=== PATIENT | male | born 1940 | race Caucasian/White ===

== ENCOUNTER → 2018-01-07 | Outpatient (CLI) | payer OTHER, MEDICARE ==
[~2018-01-07] MED LIST: CEPH500C2 PO; DOCU1TAB6 PO; KPP250 PO; MULT-190 PO; MULT-412 PO; PHEN-310 PO; PHN/100 PO; POLY1POW2 PO; PRS5 PO; TAMS0.4C59 PO
[2018-01-07 08:38] LABS: BASO % 0.6 %; BASO ABS # 0.04 K/uL (0-0.2); EOS % 7.4 %; EOS ABS # 0.53 K/uL (0-0.5); HEMOGLOBIN 14.3 g/dL (14.0-18.0); IG# 0.02 K/uL (0.00-0.02); LYMPH % 37.6 %; LYMPH ABS # 2.71 K/uL (1.2-3.4); MEAN CELL VOLUME 93.8 fL (80-100); MEAN CORPUSCULAR HEMOGLOBIN 31.9 pg (25-34); MEAN PLATELET VOLUME 10.4 fL (7.4-10.4); MONO % 6.1 %; MONO ABS # 0.44 K/uL (0.11-0.59); NEUT ABS # 3.47 K/uL (1.4-6.5); PLATELET COUNT 254 K/uL (130-400); RED CELL DISTRIBUTION WIDTH SD 44.2 fL (36.4-46.3); WHITE BLOOD COUNT 7.21 K/uL (4.8-10.8)
[2018-01-07 08:47] LABS: BLOOD UREA NITROGEN 22 mg/dl (7-18); CALCIUM 8.7 mg/dl (8.5-10.1); CARBON DIOXIDE 23 mmol/L (21-32); CREATININE 1.89 mg/dl (0.60-1.40); GLUCOSE 159 mg/dl (70-99); POTASSIUM 3.7 mmol/L (3.5-5.1); SODIUM 137 mmol/L (136-145)
== END | disposition home or self-care (01) ==
LOC: C.LABSPEC 08:08
PROVIDERS: ATTEND Internal Medicine
DX: N18.9 Chronic kidney disease, unspecified (principal); I35.0 Nonrheumatic aortic (valve) stenosis; N40.0 Benign prostatic hyperplasia without lower urinary tract symptoms; D64.9 Anemia, unspecified; R26.9 Unspecified abnormalities of gait and mobility; Z86.69 Personal history of other diseases of the nervous system and sense organs

== ENCOUNTER 2019-06-29 09:34 | Inpatient (IN) ==
[2019-06-29] MEDS ORDERED: SODIUM CHLORIDE 0.9% 500 ML IV ONE (11:49)
[2019-06-29] MEDS ORDERED: OPTIRAY 320 125ml IV PRN (11:52)
[2019-06-29 12:03] LABS: Basophils # (auto) 0.05 K/uL (0-0.2); Basophils % (auto) 0.6 %; Eosinophils # (auto) 0.26 K/uL (0-0.5); Eosinophils % (auto) 2.9 %; Hematocrit (blood only) 43.3 % (42-52); Hemoglobin 15.4 g/dL (14.0-18.0); Immature Granulocytes # (auto) 0.01 K/uL (0.00-0.02); Immature Granulocytes % (auto) 0.1 %; Lymphocytes # (auto) 2.13 K/uL (1.2-3.4); Lymphocytes % (auto) 23.5 %; Mean Corpuscular Hgb Conc 35.6 g/dL (32-36); Mean Corpuscular Volume 92.9 fL (80-100); Monocytes # (auto) 0.69 K/uL (0.11-0.59); Monocytes % (auto) 7.6 %; Neutrophils # (auto) 5.93 K/uL (1.4-6.5); Neutrophils % (auto) 65.3 %; Platelet Count 243 K/uL (130-400); RDW Coefficient of Variation 12.8 % (11.5-14.5); RDW Standard Deviation 43.6 fL (36.4-46.3); Red Blood Count 4.66 M/uL (4.7-6.1); White Blood Count 9.07 K/uL (4.8-10.8)
[2019-06-29 12:05] LABS: Albumin Level 3.7 gm/dl (3.4-5.0); BUN Creatinine Ratio 11.4 (10-20); Calcium 8.8 mg/dl (8.5-10.1); Creatinine Clr Calc Pharmacy 44.5 ml/min; Est GFR (African American) 44.1; Est GFR (Non-African American) 38.1; Magnesium 1.8 mg/dl (1.8-2.4); Potassium 3.8 mmol/L (3.5-5.1)
[2019-06-29 12:07] LABS: Partial Thromboplastin Time 27.1 Seconds (21.0-31.0); Prothrombin Time 10.7 Seconds (9.0-12.0)
[2019-06-29 12:10] LABS: Albumin Globulin Ratio 0.9 (0.9-2); Bilirubin,Total 0.8 mg/dl (0.2-1); Globulin 4.3 gm/dl (2.5-4.0); Phosphorus 2.3 mg/dl (2.5-4.9); Troponin I 0.021 ng/ml (0-0.045)
--- NOTE | 2019-06-29 12:18 | XRay Report ---
XR chest 1V portable HISTORY: 79 years-old Male stroke sx acute strokelike symptoms COMPARISON: Chest radiograph 09/22/2014 TECHNIQUE: Portable AP view of the chest FINDINGS: Cardiac silhouette is enlarged, unchanged. Calcified plaque of the thoracic aortic arch. Unchanged mi ld mediastinal widening. No pneumothorax, pleural effusion, focal airspace consolidation or overt pul monary edema. Degenerative changes of the shoulders and spine. IMPRESSION: Cardiomegaly without acute process. ACT 112: Negative or not required by law. The above report was generated using voice recognition software. It may contain grammatical, syntax o r spelling errors. Electronically signed by: Andreas Robles M.D. 06/29/2019 12:16 PM
--- NOTE | 2019-06-29 12:18 | CT Scan Report ---
CT OF THE HEAD WITHOUT CONTRAST CLINICAL HISTORY: Stroke evaluation. COMPARISON STUDY: Head CT June 29, 2019 at 3:04 AM. TECHNIQUE: Helical axial images of the head were obtained without IV contrast. Automated exposure con trol was utilized for the study. A dose lowering technique was utilized adhering to the principles o f ALARA. FINDINGS: The 3 mm extra-axial hyperdense focus overlying the right parietal region is unchanged sinc e head CT of June 28, 2019. Similar findings were shown on earlier CT of September 22, 2014. The ventr icular system is stable. Basilar cisterns are patent. No new extra-axial collections are present. Whi te matter hypodensities are unchanged. There are no findings to suggest acute dural sinus thrombosis or acute territorial infarct. Postoperative findings within the calvarium are noted, including multip le tricia holes. Sinus mucosal thickening is noted. There is no calvarial fracture. IMPRESSION: 1. No change in the small extra-axial hyperdense focus overlying the right parietal region since head CT June 28, 2019. Postoperative dural thickening is favored. A tiny subdural hematoma could appea r similar but is considered less likely. 2. No change in appearance of the brain, as described above. ACT 112: Negative or not required by law. Electronically signed by: Cr Mackay M.D. 06/29/2019 12:16 PM
--- NOTE | 2019-06-29 12:24 | CT Scan Report ---
CTA ANGIOGRAPHY OF THE HEAD CLINICAL HISTORY: aphasia, Right weakness COMPARISON STUDY: MRA of the head September 15, 2014. Head CT June 29, 2019 at 3:04 AM. TECHNIQUE: Helical axial images of the head were obtained following uneventful intravenous administr ation of 120 cc of Optiray 320. Automated exposure control was utilized for the study. A dose lower ing technique was utilized adhering to the principles of ALARA. CT DOSE: 1218.73 mGy.cm FINDINGS: The head CT will be reported separately. There is moderate sinus mucosal thickening. Postop erative findings within the calvarium are noted. Extra-axial hyperdensity overlying the right parieta l region is unchanged. There is moderate plaque within the bilateral cavernous carotids with mild pola nosis of the right cavernous carotid. No intraluminal thrombus or abrupt vessel cut off is identified . There is moderate stenosis of the proximal left posterior cerebral artery. A left posterior to sisi cating artery is noted. There is no intracranial aneurysm. IMPRESSION: 1. No intraluminal thrombus or abrupt vessel cut off within the intracranial vessels. 2. Moderate atherosclerotic plaque. Moderate stenosis of the proximal left [employer] and mild stenosis of t he right cavernous carotid. ACT 112: Negative or not required by law. Electronically signed by: Cr Mackay M.D. 06/29/2019 12:22 PM
--- NOTE | 2019-06-29 12:32 | CT Scan Report ---
CT angio neck with con CLINICAL HISTORY: 79 years-old Male with aphasia, Right weakness. Acute strokelike symptoms with r ight-sided weakness COMPARISON STUDY: CTA of the head of same day TECHNIQUE: Following the IV administration of 1 20 mL of Optiray 320, CT angiogram of the neck was pe rformed from the aortic arch to the skull base. Images are reviewed in the axial, sagittal, and coron al planes. 3-D MIPS images are created and assessed. IV contrast was administered without complicatio n. All measurements were calculated based on NASCET criteria. A dose lowering technique was utilized adhering to the principles of ALARA. FINDINGS: The opacified pulmonary arterial tree is unremarkable. Mixed plaque of the thoracic aortic arch. Hsu ncy of the imaged bilateral subclavian arteries. Moderate mixed plaque of the patent common carotid a rteries. Severe mixed plaque of the bilateral carotid bulbs results in less than 50% luminal narrowin g bilaterally, right greater than left. Imaged internal carotid arteries appear patent. Calcified sara que at the origin of the vertebral arteries results in less than 50% luminal narrowing. Less than 50% luminal narrowing involves portions of the V2 segments secondary to uncovertebral spurring and facet arthrosis. Imaged basilar artery is patent. Azygos lobe and fissure. No pneumothorax. Moderate maxillary sinus disease. Multilevel degenerative c hanges of the spine. IMPRESSION: 1. No aneurysm, dissection, high-grade stenosis or proximal branch occlusion. 2. Additional findings as above. ACT 112: Negative or not required by law. The above report was generated using voice recognition software. It may contain grammatical, syntax o r spelling errors. Electronically signed by: Andreas oRbles M.D. 06/29/2019 12:31 PM
--- NOTE | 2019-06-29 12:36 | Electrocardiogram Report ---
Test Reason : Blood Pressure : / mmHG Vent. Rate : 082 BPM Atrial Rate : 082 BPM P-R Int : 176 ms QRS Dur : 130 ms QT Int : 426 ms P-R-T Axes : 054 065 012 degrees QTc Int : 497 ms Poor data quality, interpretation may be adversely affected Normal sinus rhythm Right bundle branch block Abnormal ECG When compared with ECG of 28-JUN-2019 20:00, No significant change was found Confirmed by Zander Hinojosa ([id number]) on 06/29/2019 12:35:57 PM Referred By: ER Confirmed By:Zander Hinojosa
--- NOTE | 2019-06-29 13:12 | Emergency Department Note ---
Entered by Michaela Murillo acting as a scribe for Raul Posey MD History of Present Illness General Chief complaint: Altered Mental Status Time Seen by Provider: 06/29/19 10:59 Source: family Mode of arrival: EMS History of Present Illness Onset (ago): day(s) 1 Location: head (neuro symptoms) Severity: similar to prior episodes Pain Consistency: + other (worsening) Maximum Pain Intensity: 0 Quality: + other (neuro symptoms) Exacerbated By: + other (fall) Associated symptoms: + weakness and + other (Slurred speech, right sided weakness.); no fever/chills Treatments prior to arrival: other (Norvasc) The patient is an 79 year old male presenting to the Emergency Department via EMS complaining of worsening neuro symptoms starting 1 day ago. The patients son reports that the patient who resides at [facility] has had worsening slurred speech. He explains that he spoke to the patient yesterday and today and that the patients speech is slurred and that this slurred speech has worsened over the past day. He states that the patient has also been experiencing right sided weakness that seems to be worsening since yesterday. He notes that the patient wasnt able to cut his own food and needed assistance walking which are two things that the patient can normally do by himself. He adds that the patient has experienced these symptoms before as he has had previous strokes and subdural hematomas that have affected his strength. The patients son reports that the patient fell at 1733 yesterday and was seen in the Emergency Department for his symptoms. He states that the patient had 2 CT scans that were negative for any acute findings. He explains that the patients blood pressure was elevated and he was given Norvasc. 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 He adds that the patient has short term memory problems from his subdural hematoma in 2015 and strokes. The patients son reports that the patient doesnt drink water regularly and may be dehydrated. He denies that the patient has had any recent fevers or chills. Home Medications Home Medications Medication Instructions Recorded Confirmed Type ammonium lactate 1 applic TOPICAL DAILY PRN 06/28/19 06/29/19 History atorvastatin [Lipitor] 20 mg PO QAM 06/28/19 06/29/19 History cephalexin [Keflex] 500 mg PO BID 06/28/19 06/29/19 History docusate sodium 100 mg PO BID 06/28/19 06/29/19 History finasteride [Proscar] 5 mg PO QAM 06/28/19 06/29/19 History levetiracetam [Keppra] 1,000 mg PO BID 06/28/19 06/29/19 History methyl salicylate-menthol 1 applic TOPICAL QID PRN 06/28/19 06/29/19 History [Thera-Gesic] multivitamin 1 tab PO QAM 06/28/19 06/29/19 History tamsulosin 0.4 mg PO QAM 06/28/19 06/29/19 History tizanidine 2 mg PO Q6 PRN 06/28/19 06/29/19 History vit A,C and E-ikdbaq-bcnsjyyu 1 tab PO QAM 06/28/19 06/29/19 History [I-Don] amlodipine [Norvasc] 5 mg PO DAILY #30 tab 06/29/19 06/29/19 Rx Allergies Allergy/AdvReac Type Severity Reaction Status Date / Time MAGGI Inhibitors AdvReac Unknown 08/31/11 NO Verified 06/29/19 11:[address] RODRIGUEZ ARB-Angiotensin Receptor AdvReac Unknown 08/31/11 NO Verified 06/29/19 11:[address] MCKEON NSAIDS (Non-Steroidal AdvReac Unknown 08/31/11 NO Verified 06/29/19 11:02 Anti-Inflamma NSAIDS PER DR MCKEON Past Med/Surg History Medical History BPH (benign prostatic hyperplasia) (Chronic) Chronic subdural hematoma (Acute) CKD (chronic kidney disease), stage III (Chronic) 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 Brooks and Dr. Dooley in 05/2014 for nonhealing wound" On 09/15/14 18:32 Pili Baeza wrote "multiple craniotomies in November 2013, re-exploration and debridement by Dr. Brooks and Dr. Dooley in 05/2014" Family History Other Unknown family medical history Social History Preferred Language: Kenyan Communication Ability: slurred Toll Relief Operator Required: No Beliefs That Will Affect Care: None marital status: Single Current Living Situation: Personal Care Facility Other Information That Helps Us Care for You: No Feels Safe at Home: Yes Safety Concerns: Feels Safe At This Time Smoking Status: Former smoker Tobacco Type: cigarettes ; Do You Dip or Chew Tobacco: No ; Smoking End Date: September 09, 1984 ; Second Hand Exposure: No ; Tobacco Cessation Education Requested by Patient: No Hx Alcohol Use: Yes Alcohol type: beer Alcohol Intake Frequency: Daily Alcohol Intake Frequency Comment: 1 beer a day Hx Substance Use: No Review of Systems See HPI for pertinent positives & negatives. and A total of 10 systems reviewed and were otherwise negative Physical Exam Vital Signs Vital Signs - 24 hr 06/29/19 09:41 06/29/19 09:46 06/29/19 09:49 Temperature 37.1 C Temperature Source Oral Pulse Rate 78 82 81 Pulse Rate [Apical] Pulse Rate from SpO2 Sensor 78 80 Respiratory Rate 18 19 16 Blood Pressure 182/102 H 182/102 H Blood Pressure [Right Arm] Blood Pressure Mean 131 128 Blood Pressure Mean [Right Arm] Pulse Oximetry 95 95 95 Oxygen Delivery Method Room Air Sepsis Recent Fever Within 48 Hours No Sepsis New/Unexplained Change in Mental Status No Sepsis Action Taken by Nursing No Action Required 06/29/19 10:00 06/29/19 10:30 06/29/19 10:40 Temperature Temperature Source Pulse Rate 76 79 82 Pulse Rate [Apical] Pulse Rate from SpO2 Sensor 77 78 85 Respiratory Rate 16 14 16 Blood Pressure 224/106 H Blood Pressure [Right Arm] Blood Pressure Mean 133 Blood Pressure Mean [Right Arm] Pulse Oximetry 95 95 95 Oxygen Delivery Method Sepsis Recent Fever Within 48 Hours Sepsis New/Unexplained Change in Mental Status Sepsis Action Taken by Nursing 06/29/19 10:43 06/29/19 11:00 06/29/19 11:30 Temperature Temperature Source Pulse Rate 101 H 85 Pulse Rate [Apical] 86 Pulse Rate from SpO2 Sensor Respiratory Rate 16 18 15 Blood Pressure Blood Pressure [Right Arm] 224/106 H Blood Pressure Mean Blood Pressure Mean [Right Arm] 145 Pulse Oximetry 95 Oxygen Delivery Method Room Air Sepsis Recent Fever Within 48 Hours Sepsis New/Unexplained Change in Mental Status Sepsis Action Taken by Nursing 06/29/19 12:07 06/29/19 12:27 06/29/19 12:30 Temperature Temperature Source Pulse Rate 87 84 Pulse Rate [Apical] Pulse Rate from SpO2 Sensor 83 Respiratory Rate 18 17 Blood Pressure 213/112 H Blood Pressure [Right Arm] Blood Pressure Mean 132 Blood Pressure Mean [Right Arm] Pulse Oximetry 96 97 Oxygen Delivery Method Room Air Sepsis Recent Fever Within 48 Hours Sepsis New/Unexplained Change in Mental Status Sepsis Action Taken by Nursing 06/29/19 12:31 06/29/19 13:00 06/29/19 13:30 Temperature Temperature Source Pulse Rate 86 91 H 84 Pulse Rate [Apical] Pulse Rate from SpO2 Sensor 85 91 H Respiratory Rate 17 20 15 Blood Pressure 203/108 H 169/149 H Blood Pressure [Right Arm] Blood Pressure Mean 118 152 Blood Pressure Mean [Right Arm] Pulse Oximetry 98 98 Oxygen Delivery Method Sepsis Recent Fever Within 48 Hours Sepsis New/Unexplained Change in Mental Status Sepsis Action Taken by Nursing 06/29/19 13:38 Temperature Temperature Source Pulse Rate 90 Pulse Rate [Apical] Pulse Rate from SpO2 Sensor Respiratory Rate 14 Blood Pressure 214/107 H Blood Pressure [Right Arm] Blood Pressure Mean 136 Blood Pressure Mean [Right Arm] Pulse Oximetry Oxygen Delivery Method Sepsis Recent Fever Within 48 Hours Sepsis New/Unexplained Change in Mental Status Sepsis Action Taken by Nursing GENERAL: Awake, alert, fatigued-appearing, in no distress HENT: Normocephalic, atraumatic. Oropharynx with dry mucous membranes and otherwise unremarkable. . EYES: Normal conjunctiva. Sclera non-icteric. EOMI. No nystamgus. PEARRL. NECK: Supple. No nuchal rigidity. FROM. No JVD. RESPIRATORY: CTAB. CARDIAC: Regular rate, normal rhythm. Extremities warm and well perfused. Pulses equal. ABDOMEN: Soft, non-distended. No tenderness to palpation. No rebound or guarding. No masses. RECTAL: Deferred. MUSCULOSKELETAL: Chest examination reveals no tenderness. The back is symmetrical on inspection without obvious abnormality. There is no CVA tenderness to palpation. No joint edema. LOWER EXTREMITIES: Calves are equal size bilaterally and non-tender. No edema. No discoloration. NEURO: Moderate right lower facial droop with moderate-severe dysarthria. No word finding difficulty. Follows commands. 4/5 strength of RUE with mild pronator drift. 4+/5 RLE. SKIN: No rash or jaundice noted. Course Course 1117: The patient was evaluated in room C9, and a complete history and physical examination were performed. 1241: I reevaluated the patient at this time. 1300: I discussed the patients case with Hortensia Tatum PA-C. Dr. [facility] hospitalist will evaluate the patient for further management. Administered Medications Dextrose/Sodium Chloride (D5w And Nss) 1,000 mls @ 60 mls/hr IV .[id number] SHILOH Stop: 06/30/19 09:36 Last Admin: 06/29/19 17:18 Dose: 60 mls/hr Documented by: [id number] Nitroglycerin (Nitro-Bid 2%) 1 inch EXT Q6H SHILHO Stop: 07/29/19 17:29 Last Admin: 06/29/19 17:55 Dose: 1 inch Documented by: [id number] Discontinued Medications Sodium Chloride (Nss) 500 mls @ 999 mls/hr IV .Q31M ONE Stop: 06/29/19 12:19 Last Infusion: 06/29/19 13:22 Dose: 0 mls/hr Documented by: [id number] Admin: 06/29/19 12:26 Dose: 999 mls/hr Documented by: [id number] Ioversol (Optiray 320 125ml) 120 ml IV ONCE PRN PRN Reason: Interaction Checking Stop: 07/03/19 11:51 Last Admin: 06/29/19 11:52 Dose: 120 ml Documented by: [id number] Labetalol HCl (Normodyne) 10 mg IV NOW STA Stop: 06/29/19 13:40 Last Admin: 06/29/19 13:45 Dose: 10 mg Documented by: [id number] Cosigned by: [id number] Labetalol HCl (Normodyne) 10 mg IV NOW STA Stop: 06/29/19 14:11 Last Admin: 06/29/19 14:19 Dose: 10 mg Documented by: [id number] Cosigned by: [id number] Labetalol HCl (Normodyne) 20 mg IV NOW STA Stop: 06/29/19 15:37 Last Admin: 06/29/19 15:52 Dose: 20 mg Documented by: [id number] Cosigned by: [id number] Medical Decision Making Differential Diagnosis Differential Diagnosis includes but is not limited to dehydration, stroke, anemia, hypoglycemia, hyponatremia, hypernatremia, urinary tract infection, pneumonia, bronchitis, sepsis, gastroenteritis, additional abdominal pathology, metabolic abnormalities and infections. Medical Records Attestation: I reviewed the patient's medical records. Home Medications Current Medication List: was personally reviewed by me Laboratory Data Attestation: I reviewed the patient's lab results. Result diagrams: 06/29/19 09:55 06/29/19 09:55 Lab Results 06/29/19 06/29/19 06/29/19 Range/Units 09:55 09:55 09:55 WBC 9.07 (4.8-10.8) K/uL RBC 4.66 L (4.7-6.1) M/uL Hgb 15.4 (14.0-18.0) g/dL Hct 43.3 (42-52) % MCV 92.9 (80-100) fL MCH 33.0 (25-34) pg MCHC 35.6 (32-36) g/dL RDW Std Deviation 43.6 (36.4-46.3) fL RDW Coeff of Zahra 12.8 (11.5-14.5) % Plt Count 243 (130-400) K/uL MPV 10.0 (7.4-10.4) fL Immature Gran % (Auto) 0.1 % Neut % (Auto) 65.3 % Lymph % (Auto) 23.5 % [place] % (Auto) 7.6 % Eos % (Auto) 2.9 % Baso % (Auto) 0.6 % Immature Gran # (Auto) 0.01 (0.00-0.02) K/uL Neut # (Auto) 5.93 (1.4-6.5) K/uL Lymph # (Auto) 2.13 (1.2-3.4) K/uL [place] # (Auto) 0.69 H (0.11-0.59) K/uL Eos # (Auto) 0.26 (0-0.5) K/uL Baso # (Auto) 0.05 (0-0.2) K/uL PT 10.7 (9.0-12.0) Seconds INR 1.0 (0.9-1.1) APTT 27.1 (21.0-31.0) Seconds PTT Ratio 1.0 Sodium 137 (136-145) mmol/L Potassium 3.8 (3.5-5.1) mmol/L Chloride 105 (98-107) mmol/L Carbon Dioxide 26 (21-32) mmol/L Anion Gap 6.0 (3-11) BUN 19 H (7-18) mg/dl Creatinine 1.67 H (0.6-1.4) mg/dl Est Cr Clr Drug Dosing 44.5 ml/min Est GFR ( Amer) 44.1 Est GFR (Non-Af Amer) 38.1 BUN/Creatinine Ratio 11.4 (10-20) Glucose 122 H (70-99) mg/dl Calcium 8.8 (8.5-10.1) mg/dl Phosphorus 2.3 L (2.5-4.9) mg/dl Magnesium 1.8 (1.8-2.4) mg/dl Total Bilirubin 0.8 (0.2-1) mg/dl AST 27 (15-37) U/L ALT 37 (12-78) U/L Alkaline Phosphatase 107 (45-117) U/L Troponin I 0.021 (0-0.045) ng/ml Total Protein 8.0 (6.4-8.2) gm/dl Albumin 3.7 (3.4-5.0) gm/dl Globulin 4.3 H (2.5-4.0) gm/dl Albumin/Globulin Ratio 0.9 (0.9-2) Blood Type Antibody Screen 06/29/19 06/29/19 Range/Units 09:55 12:17 WBC (4.8-10.8) K/uL RBC (4.7-6.1) M/uL Hgb (14.0-18.0) g/dL Hct (42-52) % MCV (80-100) fL MCH (25-34) pg MCHC (32-36) g/dL RDW Std Deviation (36.4-46.3) fL RDW Coeff of Zahra (11.5-14.5) % Plt Count (130-400) K/uL MPV (7.4-10.4) fL Immature Gran % (Auto) % Neut % (Auto) % Lymph % (Auto) % [place] % (Auto) % Eos % (Auto) % Baso % (Auto) % Immature Gran # (Auto) (0.00-0.02) K/uL Neut # (Auto) (1.4-6.5) K/uL Lymph # (Auto) (1.2-3.4) K/uL [place] # (Auto) (0.11-0.59) K/uL Eos # (Auto) (0-0.5) K/uL Baso # (Auto) (0-0.2) K/uL PT (9.0-12.0) Seconds INR (0.9-1.1) APTT (21.0-31.0) Seconds PTT Ratio Sodium (136-145) mmol/L Potassium (3.5-5.1) mmol/L Chloride (98-107) mmol/L Carbon Dioxide (21-32) mmol/L Anion Gap (3-11) BUN (7-18) mg/dl Creatinine (0.6-1.4) mg/dl Est Cr Clr Drug Dosing ml/min Est GFR ( Amer) Est GFR (Non-Af Amer) BUN/Creatinine Ratio (10-20) Glucose (70-99) mg/dl Calcium (8.5-10.1) mg/dl Phosphorus Cancelled (2.5-4.9) mg/dl Magnesium (1.8-2.4) mg/dl Total Bilirubin (0.2-1) mg/dl AST (15-37) U/L ALT (12-78) U/L Alkaline Phosphatase (45-117) U/L Troponin I (0-0.045) ng/ml Total Protein (6.4-8.2) gm/dl Albumin (3.4-5.0) gm/dl Globulin (2.5-4.0) gm/dl Albumin/Globulin Ratio (0.9-2) Blood Type A Positive Antibody Screen NEGATIVE Imaging Data Radiologist's Impression: Radiology results as stated below per my review and the radiologist's interpretation: CTA ANGIOGRAPHY OF THE HEAD CLINICAL HISTORY: aphasia, Right weakness COMPARISON STUDY: MRA of the head September 15, 2014. Head CT June 29, 2019 at 3:04 AM. TECHNIQUE: Helical axial images of the head were obtained following uneventful intravenous administration of 120 cc of Optiray 320. Automated exposure control was utilized for the study. A dose lowering technique was utilized adhering to the principles of ALARA. CT DOSE: 1218.73 mGy.cm FINDINGS: The head CT will be reported separately. There is moderate sinus mucosal thickening. Postoperative findings within the calvarium are noted. Extra-axial hyperdensity overlying the right parietal region is unchanged. There is moderate plaque within the bilateral cavernous carotids with mild stenosis of the right cavernous carotid. No intraluminal thrombus or abrupt vessel cut off is identified. There is moderate stenosis of the proximal left posterior cerebral artery. A left posterior to indicating artery is noted. There is no in tracranial aneurysm. IMPRESSION: 1. No intraluminal thrombus or abrupt vessel cut off within the intracranial vessels. 2. Moderate atherosclerotic plaque. 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 ACT 112: Negative or not required by law. Electronically signed by: Cr Mackay M.D. 06/29/2019 12:[address] angio neck with con CLINICAL HISTORY: 79 years-old Male with aphasia, Right weakness. Acute strokelike symptoms with right-sided weakness COMPARISON STUDY: CTA of the head of same day TECHNIQUE: Following the IV administration of 1 20 mL of Optiray 320, CT angiogram of the neck was performed from the aortic arch to the skull base. Images are reviewed in the axial, sagittal, and coronal planes. 3-D MIPS images are created and assessed. IV contrast was administered without complication. All measurements were calculated based on NASCET criteria. A dose lowering technique was utilized adhering to the principles of ALARA. FINDINGS: The opacified pulmonary arterial tree is unremarkable. Mixed plaque of the thoracic aortic arch. Patency of the imaged bilateral subclavian arteries. Moderate mixed plaque of the patent common carotid arteries. Severe mixed plaque of the bilateral carotid bulbs results in less than 50% luminal narrowing bilaterally, right greater than left. Imaged internal carotid arteries appear patent. Calcified plaque at the origin of the vertebral arteries results in less than 50% luminal narrowing. Less than 50% luminal narrowing involves portions of the V2 segments secondary to uncovertebral spurring and facet arthrosis. Imaged basilar artery is patent. Azygos lobe and fissure. No pneumothorax. Moderate maxillary sinus disease. Multilevel degenerative changes of the spine. IMPRESSION: 1. No aneurysm, dissection, high-grade stenosis or proximal branch occlusion. 2. Additional findings as above. ACT 112: Negative or not required by law. The above report was generated using voice recognition software. It may contain grammatical, syntax or spelling errors. Electronically signed by: Andreas Robles M.D. 06/29/2019 12:[address] OF THE HEAD WITHOUT CONTRAST CLINICAL HISTORY: Stroke evaluation. COMPARISON STUDY: Head CT June 29, 2019 at 3:04 AM. TECHNIQUE: Helical axial images of the head were obtained without IV contrast. Automated exposure control was utilized for the study. A dose lowering technique was utilized adhering to the principles of ALARA. FINDINGS: The 3 mm extra-axial hyperdense focus overlying the right parietal region is unchanged since head CT of June 28, 2019. Similar findings were shown on earlier CT of September 22, 2014. The ventricular system is stable. Basilar cisterns are patent. No new extra-axial collections are present. White matter hypodensities are unchanged. There are no findings to suggest acute dural sinus thrombosis or acute territorial infarct. Postoperative findings within the calvarium are noted, including multiple tricia holes. Sinus mucosal thickening is noted. There is no calvarial fracture. IMPRESSION: 1. No change in the small extra-axial hyperdense focus overlying the right parietal region since head CT June 28, 2019. Postoperative dural thickening is favored. A tiny subdural hematoma could appear similar but is considered less likely. 2. No change in appearance of the brain, as described above. ACT 112: Negative or not required by law. Electronically signed by: Cr Mackay M.D. 06/29/2019 12:16 PM XR chest 1V portable HISTORY: 79 years-old Male stroke sx acute strokelike symptoms COMPARISON: Chest radiograph 09/22/2014 TECHNIQUE: Portable AP view of the chest FINDINGS: Cardiac silhouette is enlarged, unchanged. Calcified plaque of the thoracic aort ic arch. Unchanged mild mediastinal widening. No pneumothorax, pleural effusion, focal airspace consolidation or overt pulmonary edema. Degenerative changes of the shoulders and spine. IMPRESSION: Cardiomegaly without acute process. ACT 112: Negative or not required by law. The above report was generated using voice recognition software. It may contain grammatical, syntax or spelling errors. Electronically signed by: Andreas Robles M.D. 06/29/2019 12:16 PM ECG Data Attestation: I personally reviewed and interpreted this ECG as follows: Indication: + altered mental status (confusion) Rate (beats per minute): 82 Rhythm: + normal sinus ECG Intervals/blocks: + Right Bundle branch block and + Normal QT-c (QT-c 497.) ECG ST segments: no ST depression and no ST elevation ECG Findings: no PACs and no PVCs Blood Pressure Blood Pressure Findings: Elevated blood pressure Blood Pressure Disposition: further management by hospitalist JILLIAN Fu The patient is a pleasant 79-year-old gentleman with a pmhx of HTN, CKD, h/o SDH s/p craniotomy who presents emergency department with continued dysarthria and right-sided weakness after being seen in the emergency department last evening for onset of the symptoms in the setting of a fall per HPI. On arrival the patient is in no acute distress, afebrile stable vital signs. He does exhibit moderate right facial droop with moderate-severe dysarthria without any word finding difficulty. He has 4/5 strength of the right upper extremity with pronator drift and 4+/strength of the right lower extremity. Upon patient's evaluation last night into this morning the patient had a CT scan of his head that was considered equivocal for postoperative findings versus new SDH in the setting of his fall. However a repeat CT scan was performed and was unchanged suggesting unlikely to be acute bleed. Given the patient's history of cranio evelyn certainly could be scar tissue/dural thickening/Duraseal causing increased enhancement. I did review the patient's symptoms in detail with the patient's son at the bedside and it was clear that his current symptoms are a complete departure from his baseline. Given that the onset was around 5 PM yesterday, within 24 hours a stroke alert was called to evaluate expeditiously the possibility of large vessel occlusion, which could be amenable to endovascular intervention. Clearly he is not a TPA candidate based on his history of intracranial bleedign alone . CTA of the head and neck were performed with IV contrast after discussion with the patient and his son at the bedside regarding risks of his CKD. However we did agree that the potential benefit outweighed these risks. The CTA of the head and neck was subsequently negative for large vessel cutoffs. EKG with RBBB without overt acute ischemia. Chest x-ray negative for acute process. WBC, H/H and platelets within normal limits. Chemistry without acidosis. Creatinine 1.6 approximate to prior range of values in the setting of CKD. Electrolytes and LFTs unremarkable. Troponin detectable but within normal limits at 0.021. Unclear etiology of patient's symptoms at this time. While CTA did not show evidence of stroke symptoms certainly could be consistent with this. Alternatively while the patient's son denies any histo ry of seizures after his subdural hematoma he has been on Keppra. Potentially could represent a profound Nicolas's paralysis. Patient and his son are agreeable with admission for further revaluation including MRI and neurology consultation. Case was discussed with Nitin Wilkinson, who evaluate the patient for admission. Impression & Plan Dysarthria, Right sided weakness, History of craniotomy, Facial droop, History of subdural hematoma Discharge Plan Visit Data *Final* Discharge Date/Time: 06/29/19 15:32 Chief Complaint: Altered Mental Status ED Provider: Raul Posey Discharge Problem: Dysarthria, Right sided weakness, History of craniotomy, Facial droop, History of subdural hematoma Patient Disposition: Admitted As Inpatient Discharge Instructions Interventions: ED Discharge Assessment Last Done: 06/29/19 15:32 The scribe's documentation has been prepared under my direction and personally reviewed by me in its entirety. I confirm that the note above accurately reflects all work, treatment, procedures, and medical decision making performed by me.
[2019-06-29] MEDS ORDERED: LABETALOL HCL IV 5 MG/ML 20ML IV STA ×3 (13:39→15:36)
--- NOTE | 2019-06-29 14:16 | History & Physical Report ---
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 In ED patient significantly hypertensive, 224/106 during my evaluation. He otherwise remained hemodynamically stable. He underwent CT scan of head without contrast which was unchanged from yesterday's images. CTA of head and neck were ordered and revealed moderate stenosis of proximal left [employer] and mild stenosis of right cavernous carotid. admit to PCU obtain MRI neurology consulted increase atorvastatin from 20mg to 40mg for high intensity lipid panel and a1c in a.m. obtain echocardiogram PT/OT/ST consulted Keep NPO given slurred speech until seen by ST IVF 60cc/hr while NPO (2) Hypertensive emergency: Labetalol 10 mg IV x1 given and repeated due to persistent hypertensive urgency Maintain BP < 220/110 given concern for CVA repeat BP 179/101 previously not on BP meds ( was started on amlodipine 5mg daily in ED on 06/28/19 but hasn't started this) (3) Chronic subdural hematoma: History of prior SDH secondary to trauma requiring multiple craniotomy and surgical interventions He did have chronic and recurrent infectious bur hole sites which he is currently on Keflex for chronic suppressive therapy Neurology consulted (4) History of seizures: 2/2 history of SDH No seizure-like activity Continue Kera (5) Alcohol dependence: pt with prior hx of ETOH abuse prior to SDH now drinks 1 beer nightly placed on AWSS scale with prn lorazepam monitor closely for s/sx of withdrawal (6) CKD (chronic kidney disease), stage III: Baseline creatinine 1.6 BUN/ebecyraala57/1.67 today He did receive CTA while in ED and IVF repeat renal function in a.m. (7) BPH (benign prostatic hyperplasia): hold flomax and finasteride due to hypotensive effects until acute stroke ruled out (8) DVT prophylaxis: SCDS/TEDS for now Disposition: admit to PCU, case management consulted, current resident of [facility] Follow up: PCP Dr. He upon discharge Pt was seen and examined in collaboration with Dr. Esthela, please see addendum History of Present Illness Chief Complaint: Slurred speech and fall in past 24 hours. 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 Of significance patient was last seen in ED last evening on 06/28/2019 approximately 2 hours after suffering a fall. He resides at [facility] when he fell on his bottom, denies hitting his head or losing consciousness. When son came to see him he noted significant slurred speech and difficulty with mobility; therefore he was brought to ED for further evaluation. At time of the fall son also noted his blood pressure to be systolically over 200. During ED evaluation yesterday patient did receive CT scan of head without contrast x2 which revealed a 3 mm extra-axial hyperdense focus along the right parietal region which felt to be consistent to his prior craniotomy site and postop change. Repeat image was unchanged. He was significantly hypertensive during evaluation, but slurred speech had improved and patient was discharged back to [facility]. When he returned back to [facility] son had breakfast with him and patient was having significant difficulty using right upper extremity to eat breakfast. At baseline patient is independent and ambulates with cane or walker and is independent of ADLs. Son noticed slurred speech to progressively get worse; therefore brought back to ED for further evaluation. Currently patient offers no complaints and denies total ROS. Son admits to continued slurred speech, right facial droop and difficulty with mobility. "When you test his strength his strength is there but he has difficulty holding up his right arm with eyes closed and difficulty with mobility." Patient denies any recent illness, fever, chills, sweats, lightheadedness, dizziness, headache, change in vision, change in hearing, diplopia, difficulty swallowing, chest pain, shortness with, palpitation, nausea, vomiting, diarrhea, change in bowel or urinary habits. Up until last evening his appetite had been normal and had been in normal state of health. In ED patient significantly hypertensive, 224/106 during my evaluation. He otherwise remained hemodynamically stable. He underwent CT scan of head without contrast which was unchanged from yesterday's images. CTA of head and neck were ordered and revealed moderate stenosis of proximal left [employer] and mild stenosis of right cavernous carotid. Allergies Allergy/AdvReac Type Severity Reaction Status Date / Time MAGGI Inhibitors AdvReac Unknown 08/31/11 NO Verified 06/29/19 11:[address] RODRIGUEZ ARB-Angiotensin Receptor AdvReac Unknown 08/31/11 NO Verified 06/29/19 11:[address] MCKEON NSAIDS (Non-Steroidal AdvReac Unknown 08/31/11 NO Verified 06/29/19 11:02 Anti-Inflamma NSAIDS PER DR MCKEON Home Medications Home Medications Medication Instructions Recorded Confirmed Type ammonium lactate 1 applic TOPICAL DAILY PRN 06/28/19 06/29/19 History atorvastatin [Lipitor] 20 mg PO QAM 06/28/19 06/29/19 History cephalexin [Keflex] 500 mg PO BID 06/28/19 06/29/19 History docusate sodium 100 mg PO BID 06/28/19 06/29/19 History finasteride [Proscar] 5 mg PO QAM 06/28/19 06/29/19 History levetiracetam [Keppra] 1,000 mg PO BID 06/28/19 06/29/19 History methyl salicylate-menthol 1 applic TOPICAL QID PRN 06/28/19 06/29/19 History [Thera-Gesic] multivitamin 1 tab PO QAM 06/28/19 06/29/19 History tamsulosin 0.4 mg PO QAM 06/28/19 06/29/19 History tizanidine 2 mg PO Q6 PRN 06/28/19 06/29/19 History vit A,C and [id number]-klktxt-ksoytcqm 1 tab PO QAM 06/28/19 06/29/19 History [I-Don] amlodipine [Norvasc] 5 mg PO DAILY #30 tab 06/29/19 06/29/19 Rx Past Med/Surg History Medical History (Updated 06/29/19 @ 14:46 by Lisa Hatfield PA-C) BPH (benign prostatic hyperplasia) (Chronic) Chronic subdural hematoma (Acute) CKD (chronic kidney disease), stage III (Chronic) 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 Brooks and Dr. Dooley in 05/2014 for nonhealing wound" On 09/15/14 18:32 Pili Baeza wrote "multiple craniotomies in November 2013, re-exploration and debridement by Dr. Brooks and Dr. 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 Required: No Beliefs That Will Affect Care: None marital status: Single Current Living Situation: [facility] Other Information That Helps Us Care for You: No Feels Safe at Home: Yes Safety Concerns: Feels Safe At This Time Smoking Status: Former smoker Tobacco Type: cigarettes ; Do You Dip or Chew Tobacco: No ; Smoking End Date: September 09, 1984 ; Second Hand Exposure: No ; Tobacco Cessation Education Requested by Patient: No Hx Alcohol Use: Yes Alcohol type: beer Alcohol Intake Frequency: Daily Alcohol Intake Frequency Comment: 1 beer a day Hx Substance Use: No Review of Systems Review of Systems: All systems reviewed & are unremarkable except as noted in HPI & below Physical Exam Physical Exam: Constitutional: WD/WN, morbidly obese, elderly male, vitals as above, NAD, sitting up in bed, pleasant, dysarthria Head: Normocephalic, patient with bilateral bur holes, healed, no surrounding erythema Eyes: Left pupil dilated and less reactive than right, EOMI, conjunctivae normal, anicteric sclerae ENMT: external ear and nose normal, oropharynx normal Neck: trachea midline, no thyromegaly normal visual inspection Respiratory: normal respiratory effort, lungs clear to auscultation, no wheeze, rales, rhonchi. Normal insp/exp effort, no accessory muscle use Cardiovascular: RRR, 2/6 harsh AD best noted RUSB, no edema Vessels: no JVD or carotid bruit Chest: normal inspection of chest Abdomen: Protuberant abdomen, normal bowel sounds, soft, nontender, no hepatosplenomegaly Musculoskeletal: no cyanosis or clubbing, 4/5 bilaterally upper and lower Skin: no rashes, warm and dry normal turgor Neurologic: PERRL, EOMI, accommodation nl, right facial droop, dysarthria, mild tongue deviation CN's II-XI intact bilaterally and moves all extremities,+pronator drift Psychiatric: A+Ox3, euthymic affect Lymphatic: no cervical or axillary lymphadenopathy : deferred Results & Data Vital Signs (Past 12 Hours) Vital Signs Temp Pulse Pulse Resp BP BP Pulse Ox 06/29/19 14:00 77 15 06/29/19 13:38 90 14 214/107 H 06/29/19 13:30 84 15 06/29/19 13:00 91 H 20 169/149 H 98 06/29/19 12:31 86 17 203/108 H 98 06/29/19 12:30 84 17 97 06/29/19 12:27 96 06/29/19 12:07 87 18 213/112 H 06/29/19 11:30 85 15 06/29/19 11:00 101 H 18 06/29/19 10:43 86 16 224/106 H 95 06/29/19 10:40 82 16 224/106 H 95 06/29/19 10:30 79 14 95 06/29/19 10:00 76 16 95 06/29/19 09:49 37.1 C 81 16 182/102 H 95 06/29/19 09:46 82 19 95 06/29/19 09:41 78 18 182/102 H 95 Laboratory Results Short CBC 06/29/19 06/29/19 Range/Units 09:55 09:55 WBC 9.07 (4.8-10.8) K/uL Hgb 15.4 (14.0-18.0) g/dL Hct 43.3 (42-52) % Plt Count 243 (130-400) K/uL Creatinine 1.67 H (0.6-1.4) mg/dl Troponin I 0.021 (0-0.045) ng/ml BMP 06/29/19 09:55 Sodium 137 Potassium 3.8 Chloride 105 Carbon Dioxide 26 BUN 19 H Creatinine 1.67 H Glucose 122 H Calcium 8.8 Cardiac Enzymes 06/29/19 Range/Units 09:55 Troponin I 0.021 (0-0.045) ng/ml Liver Function 06/29/19 Range/Units 09:55 Total Bilirubin 0.8 (0.2-1) mg/dl AST 27 (15-37) U/L ALT 37 (12-78) U/L Alkaline Phosphatase 107 (45-117) U/L Albumin 3.7 (3.4-5.0) gm/dl Diagnostic Findings CXR: IMPRESSION: Cardiomegaly without acute process. Head CT: IMPRESSION: 1. No change in the small extra-axial hyperdense focus overlying the right parietal region since head CT June 28, 2019. Postoperative dural thickening is favored. A tiny subdural hematoma could appear similar but is considered less likely. 2. No change in appearance of the brain, as described above. Head CTA: IMPRESSION: 1. No intraluminal thrombus or abrupt vessel cut off within the intracranial vessels. 2. Moderate atherosclerotic plaque. Moderate stenosis of the proximal left [employer] and mild stenosis of the right cavernous carotid. Neck CTA: IMPRESSION: 1. No aneurysm, dissection, high-grade stenosis or proximal branch occlusion. 2. Additional findings as above Medications Administered Ioversol (Optiray 320 125ml) 120 ml IV ONCE PRN PRN Reason: Interaction Checking Stop: 07/03/19 11:51 Last Admin: 06/29/19 11:52 Dose: 120 ml Documented by: [id number] Discontinued Medications Sodium Chloride (Nss) 500 mls @ 999 mls/hr IV .Q31M ONE Stop: 06/29/19 12:19 Last Infusion: 06/29/19 13:22 Dose: 0 mls/hr Documented by: [id number] Admin: 06/29/19 12:26 Dose: 999 mls/hr Documented by: [id number] Labetalol HCl (Normodyne) 10 mg IV NOW STA Stop: 06/29/19 13:40 Last Admin: 06/29/19 13:45 Dose: 10 mg Documented by: [id number] Cosigned by: [id number] Labetalol HCl (Normodyne) 10 mg IV NOW STA Stop: 06/29/19 14:11 Last Admin: 06/29/19 14:19 Dose: 10 mg Documented by: [id number] Cosigned by: [id number] ECG Rate (beats per minute): 82 Rhythm: normal sinus Findings: + RBBB Code Status & VTE Plan Code Status Full Code VTE Prophylaxis Plan VTE Prophylaxis will be ordered: Yes Supervising Physician Co-Signing Physician Notes Attending addendum: The patient was seen and examined in emergency room in presence of the son This is an 79-year-old male who has significant past medical history of subdural hematoma status post craniotomy, 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 He was in the emergency room yesterday with TIA-like symptoms and has had 2 CAT scans which were negative and his symptoms resolved He is back in today with increasing dysarthria and complaining of weakness involving left-sided extremities During examination he complained only of dysarthria which was noted but did not have any other new symptoms On examination No apparent distress at rest His blood pressure noted to be very high at presentation systolic to 151 diastolic 130 Chest-decreased breath sounds at the bases on both sides without any crackles Heart-S1-S2, regular Abdomen-benign Extremities-no edema PIT RECORDER-alert, awake and oriented. Has dysphasia likely expressive but does not have any other focal sensory and motor deficit Admission labs and imaging studies reviewed CT of the head did not show any significant change compared with prior Will have MRI to evaluate possible stroke Hypertensive urgency will be treated and maintain blood pressure of systolic around 160 Neuro consultation I agree with assessment and plan as outlined above by Millie Proctor
--- NOTE | 2019-06-29 16:49 | Magnetic Resonance Report ---
Brain MRI WITHOUT CONTRAST HISTORY: Left-sided weakness. Slurred speech. TECHNIQUE: Multiplanar multisequence MRI of the brain was performed without the use of contrast. COMPARISON STUDY: Brain MRI 09/15/2014. FINDINGS: There are 2 punctate foci of restricted diffusion seen within the left basal ganglia consis tent with acute lacunar infarcts. Prior right craniotomy and bilateral tricia holes are again noted. Mo derate mucosal thickening within the paranasal sinuses and a trace fluid level within the left maxill hilary sinus and left sphenoid sinus. The mastoid air cells are clear. The major vascular flow voids at the skull base are well-maintained. Atrophy and moderate microvascular ischemic changes are again not ed. Right temporal, parietal, and right high convexity encephalomalacia likely represent old infarcts . This is also unchanged. Trace right parietal extra-axial signal abnormality. This could represent t race subdural hematoma versus chronic dural thickening from postoperative change. This is best seen o n coronal FLAIR image 16 and measures 2 mm in thickness. IMPRESSION: 1. There are 2 adjacent punctate acute lacunar infarct within the left basal ganglia. 2. Trace right parietal extra-axial signal abnormality. This could represent trace subdural hematoma versus chronic dural thickening from postoperative change. 3. Acute on chronic paranasal sinusitis. 4. Postoperative changes and old infarcts as described above. ACT 112: Negative or not required by law. Electronically signed by: Janes North M.D. 06/29/2019 4:47 PM
[2019-06-29] MEDS ORDERED: LORazepam 1 MG TAB PO PRN (16:57)
[2019-06-29] MEDS ORDERED: LABETALOL HCL IV 5 MG/ML 20ML IV PRN (16:57)
[2019-06-29] MEDS ORDERED: PHARMACIST DISCHARGE MED REC CONSULT PRN (16:57)
[2019-06-29] MEDS ORDERED: D5W AND NSS 1,000 ML IV SCH (16:57)
[2019-06-29] MEDS ORDERED: ONDANSETRON INJ 2 MG/ML 2 ML VIAL IV PRN (16:57)
[2019-06-29] MEDS: NITROGLYCERIN 2% OINTMENT 30GM TUBE EXT SCH (17:55)
[2019-06-29] MEDS ORDERED: ASPIRIN 81 MG ECTAB PO SCH (18:30)
[2019-06-29] MEDS: DOCUSATE SODIUM 100 MG CAP PO SCH (20:17)
[2019-06-29] MEDS: ASPIRIN 300 MG SUPP PR SCH (20:26)
[2019-06-29] MEDS ORDERED: levETIRAcetam 500 MG TAB PO SCH (21:00)
[2019-06-29] MEDS ORDERED: cephALEXin 500 MG CAP PO SCH (21:00)
[2019-06-30] MEDS: NITROGLYCERIN 2% OINTMENT 30GM TUBE EXT SCH ×2 (01:23→05:37)
[2019-06-30 06:49] LABS: Basophils # (auto) 0.05 K/uL (0-0.2); Basophils % (auto) 0.7 %; Eosinophils % (auto) 2.7 %; Hematocrit (blood only) 42.6 % (42-52); Hemoglobin 14.4 g/dL (14.0-18.0); Immature Granulocytes # (auto) 0.01 K/uL (0.00-0.02); Immature Granulocytes % (auto) 0.1 %; Lymphocytes # (auto) 1.93 K/uL (1.2-3.4); Mean Corpuscular Hemoglobin 32.3 pg (25-34); Mean Corpuscular Hgb Conc 33.8 g/dL (32-36); Mean Corpuscular Volume 95.5 fL (80-100); Mean Platelet Volume 10.4 fL (7.4-10.4); Monocytes # (auto) 0.55 K/uL (0.11-0.59); Monocytes % (auto) 7.4 %; Neutrophils # (auto) 4.69 K/uL (1.4-6.5); Neutrophils % (auto) 63.1 %; Platelet Count 208 K/uL (130-400); RDW Standard Deviation 45.8 fL (36.4-46.3); Red Blood Count 4.46 M/uL (4.7-6.1); White Blood Count 7.43 K/uL (4.8-10.8)
[2019-06-30 07:18] LABS: BUN Creatinine Ratio 11.9 (10-20); Calcium 8.3 mg/dl (8.5-10.1); Creatinine Clr Calc Pharmacy 48.2 ml/min; Est GFR (African American) 48.3; Est GFR (Non-African American) 41.7; Potassium 3.7 mmol/L (3.5-5.1)
[2019-06-30 07:43] LABS: Estimated Average Glucose 137 mg/dl; Hemoglobin A1C 6.4 % (4.5-5.6)
[2019-06-30] MEDS ORDERED: LABETALOL HCL IV 5 MG/ML 20ML IV PRN (09:41)
[2019-06-30] MEDS: ASPIRIN 300 MG SUPP PR SCH (10:13)
[2019-06-30] MEDS ORDERED: FUROSEMIDE 20 MG in SYRINGE 0 ML IV ONE (10:15)
[2019-06-30] MEDS: ATORVASTATIN 40 MG TAB PO SCH (10:29)
[2019-06-30] MEDS: CEROVITE ADV FORMULA TAB PO SCH (10:29)
[2019-06-30] MEDS: MULTIVITAMIN TAB PO SCH (10:29)
[2019-06-30] MEDS ORDERED: D5W AND 1/2NSS 1,000 ML IV SCH (10:30)
[2019-06-30] MEDS: DOCUSATE SODIUM 100 MG CAP PO SCH ×2 (10:30→21:40)
[2019-06-30] MEDS ORDERED: HydrALAZINE HCL 20 MG/ML VIAL IV STA (11:28)
[2019-06-30] MEDS ORDERED: HydrALAZINE HCL 20 MG/ML VIAL IV PRN (11:28)
[2019-06-30] MEDS ORDERED: MAGNESIUM SULFATE / D5W 1 GM/100 ML BAG IV STA (11:29)
[2019-06-30] MEDS ORDERED: AMLODIPINE BESYLATE 5 MG TAB PO ONE (12:32)
--- NOTE | 2019-06-30 14:24 | Electrocardiogram Report ---
Test Reason : Blood Pressure : / mmHG Vent. Rate : 078 BPM Atrial Rate : 078 BPM P-R Int : 182 ms QRS Dur : 132 ms QT Int : 460 ms P-R-T Axes : 112 085 065 degrees QTc Int : 524 ms Normal sinus rhythm Right bundle branch block Abnormal ECG When compared with ECG of 29-JUN-2019 09:44, T wave inversion no longer evident in Inferior leads Confirmed by Zander Hinojosa ([id number]) on 06/30/2019 2:23:27 PM Referred By: Alo Tuttle [place] Confirmed By:Zander Hinojosa
--- NOTE | 2019-06-30 14:51 | Neurology Consultation ---
Date of Consultation June 30, 2019 Assessment & Plan (1) Right sided weakness: 1. MRI brain- 2 adjacent punctate acute lacunar infarct left basal ganglia 2. CTA head left [employer] moderate stenosis 3. optimize HTN, HLD, DM LDL <70 4. PT/OT speech for discharge needs 5. aspirin 81 mg only at this time 6. follow up CT head in 1 week for any signs of hemorrhagic conversion 7. TTE- pending- please order if not done follow up in 4-6 weeks after discharge from rehab Brianne David PAC schedule (2) Stroke-like symptoms: as above (3) Facial droop: as above (4) History of craniotomy: as above Supervising Physician Co-Signing Physician Notes I have seen and discussed above patient with Dr Brianne Coelho, neurology Pt seen examined. Images reviewed. Exam marked dysarthria, flattened L NLF. no field cut or aphasia.RUE at best 3/5 RLE about same. L hemisp lacune. ASA started, Goal LDL<70. No high grade carotid stensosi. Rec fu CT head tomorr, r/o recurrent CT head. Ivonne Madison History of Present Illness Reason for Consultation: stroke like sx, mod [employer] stenosis Requesting Physician: Walter Torres MD Attending Physician: Walter Torres MD History of Present Illness Essence is a 79 year old male with PMH -SDH status post craniotomy, recurrent tricia hole infections on chronic suppressive therapy, seizure disorder, CKD stage III, mild aortic stenosis, BPH. He presented to [facility] ED due secondary to worsening dysarthria. He suffered a fall on 06/28/2019 and see in the ED. He resides at [facility] when he fell on his bottom, denies hitting his head or losing consciousness. He then had slurred speech and difficulty with mobility. Blood pressure was systolically over 200. CT scan of head without contrast x2 which revealed a 3 mm extra-axial hyperdense focus along the right parietal region which felt to be consistent to his prior craniotomy site and postop change. He was significantly hypertensive during evaluation, but slurred speech had improved and patient was discharged back to [facility]. When he returned back to [facility] son had breakfast with him and was having significant difficulty using right upper extremity to eat breakfast. At baseline he ambulates with cane or walker and is independent of ADLs. Son noticed slurred speech to progressively get worse; therefore brought back to ED for further evaluation. Son admits to continued slurred speech, right facial droop and difficulty with mobility. denies CP, SOB, abdominal pain, N, V, vision changes, new bowel or bladder issues. Allergies Allergy/AdvReac Type Severity Reaction Status Date / Time MAGGI Inhibitors AdvReac Unknown 08/31/11 NO Verified 06/29/19 11:[address] RODRIGUEZ ARB-Angiotensin Receptor AdvReac Unknown 08/31/11 NO Verified 06/29/19 11:[address] MCKEON NSAIDS (Non-Steroidal AdvReac Unknown 08/31/11 NO Verified 06/29/19 11:02 Anti-Inflamma NSAIDS PER DR MCKEON Home Medications Home Medications Medication Instructions Recorded Confirmed Type ammonium lactate 1 applic TOPICAL DAILY PRN 06/28/19 06/29/19 History atorvastatin [Lipitor] 20 mg PO QAM 06/28/19 06/29/19 History cephalexin [Keflex] 500 mg PO BID 06/28/19 06/29/19 History docusate sodium 100 mg PO BID 06/28/19 06/29/19 History finasteride [Proscar] 5 mg PO QAM 06/28/19 06/29/19 History levetiracetam [Keppra] 1,000 mg PO BID 06/28/19 06/29/19 History methyl salicylate-menthol 1 applic TOPICAL QID PRN 06/28/19 06/29/19 History [Thera-Gesic] multivitamin 1 tab PO QAM 06/28/19 06/29/19 History tamsulosin 0.4 mg PO QAM 06/28/19 06/29/19 History tizanidine 2 mg PO Q6 PRN 06/28/19 06/29/19 History vit A,C and C-[id number]-ltzyvwtp 1 tab PO QAM 06/28/19 06/29/19 History [I-Don] amlodipine [Norvasc] 5 mg PO DAILY #30 tab 06/29/19 06/29/19 Rx Patient History Medical History BPH (benign prostatic hyperplasia) (Chronic) Chronic subdural hematoma (Acute) CKD (chronic kidney disease), stage III (Chronic) 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 Brooks and Dr. Dooley in 05/2014 for nonhealing wound" On 09/15/14 18:32 Pili Baeza wrote "multiple craniotomies in November 2013, re-exploration and debridement by Dr. Brooks and Dr. 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 Required: No Beliefs That Will Affect Care: None marital status: Single Current Living Situation: [facility] Other Information That Helps Us Care for You: No Feels Safe at Home: Yes Safety Concerns: Feels Safe At This Time Smoking Status: Former smoker Tobacco Type: cigarettes ; Do You Dip or Chew Tobacco: No ; Smoking End Date: September 09, 1984 ; Second Hand Exposure: No ; Tobacco Cessation Education Requested by Patient: No Hx Alcohol Use: Yes Alcohol type: beer Alcohol Intake Frequency: Daily Alcohol Intake Frequency Comment: 1 beer a day Hx Substance Use: No Physical Exam Physical Exam: Physical Exam: Constitutional: appearance over nourished, healthy Ears, Nose, Mouth and Throat: mucous membranes moist, no injection and skin normal, eyes normal Cardiovascular: normal S-1 and S-2 and regular rate and rhythm Respiratory: clear to auscultation (CTA) and no rales, ronchi or wheeze Musculoskeletal: no peripheral edema and good distal pulses, head multiple areas of skull deformity Skin: no stigmata of neurocutaneous disease noted and normal and intact Eyes: extraocular muscles intact (EOMI) and pupils equal, round and reactive to light (PERRL), gross peripheral vision decreased NEUROLOGIC EXAMINATION: Mental status: Alert and interactive Oriented to hospital Oriented to person Speech slurred vision Cranial Nerves right facial droop Reflexes: Deep tendon reflexes were symmetrical and graded 2/5. down going toes Sensory: light and cool touch Coordination: finger to nose on left intact right unable to raise arm Gait/Stance: Posture sitting up in bed Motor: unable to lift right arm Strength: right hand trestleman 4+/5, biceps triceps 4/5 unable to lift arm, right hip flex 4/5, plantar flex ext 5/5, right UE/LE 5/5 Results & Data Vital Signs (Past 12 Hours) Vital Signs Temp Pulse Pulse Resp BP BP Pulse Ox 06/30/19 12:44 184/84 H 06/30/19 11:20 36.4 C L 73 18 204/105 H 96 06/30/19 08:00 69 06/30/19 07:05 36.4 C L 86 19 189/95 H 94 06/30/19 04:40 178/85 H 06/30/19 03:50 36.3 C L 83 19 203/93 H 94 Laboratory Results Abnormal lab results 06/30/19 06/30/19 06/30/19 Range/Units 05:44 05:44 05:44 RBC 4.46 L (4.7-6.1) M/uL Creatinine 1.55 H (0.6-1.4) mg/dl Glucose 141 H (70-99) mg/dl Hemoglobin A1c 6.4 H (4.5-5.6) % Calcium 8.3 L (8.5-10.1) mg/dl Diagnostic Findings CXR-Cardiomegaly without acute process. CTA neck-. No aneurysm, dissection, high-grade stenosis or proximal branch occlusion. Additional findings as above. CTA head-No intraluminal thrombus or abrupt vessel cut off within the intracranial vessels. Moderate atherosclerotic plaque. Moderate stenosis of the proximal left [employer] and mild stenosis of the right cavernous carotid. MRI brain-here are 2 adjacent punctate acute lacunar infarct within the left basal ganglia. Trace right parietal extra-axial signal abnormality. This could represent trace subdural hematoma versus chronic dural thickening from postoperative change. Acute on chronic paranasal sinusitis. Postoperative changes and old infarcts as described above.
--- NOTE | 2019-06-30 18:14 | Hospitalist Progress Note ---
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 -In ED patient significantly hypertensive CTA neck-. No aneurysm, dissection, high-grade stenosis or proximal branch occlusion. Additional findings as above. CTA head-No intraluminal thrombus or abrupt vessel cut off within the intracranial vessels. Moderate atherosclerotic plaque. 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 MRI brain- 2 adjacent punctate acute lacunar infarct within the left basal ganglia. Trace right parietal extra-axial signal abnormality. This could represent trace subdural hematoma versus chronic dural thickening from postoperative change. Acute on chronic paranasal sinusitis neurology recommends follow up CT head in 1 week for any signs of hemorrhagic conversion aspirin and atorvastatin to prevent stroke recurrence continue speech therapy/PT/OT evaluations - will likely need physical therapy placement or senior care facility placement for physical rehab continue management of blood pressure as below (2) Hypertensive emergency: -blood pressure elevated on admission -06/30/2019 will try to target better blood pressure with amlodipine 10 mg daily, labetalol 100 mg q12 hours, clonidine patch. also there are prn IV labetalol and prn IV hydralazine with parameters. 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 which he is currently on Keflex for chronic suppressive therapy (4) History of seizures: -secondary to history of SDH in the past -Continue Keppra 1000 mg BID (5) Alcohol dependence: -pt with prior hx of ETOH abuse prior to SDH, drinks 1 beer nightly previous to this admission -on AWSS scale with prn lorazepam -monitor closely for any possible alcohol withdrawal (6) CKD (chronic kidney disease), stage III: -renal function at baseline (7) BPH (benign prostatic hyperplasia): -finasteride -resume tamsulosin (8) DVT prophylaxis: SCDS/TEDS for now Subjective right facial droop, slurred speech, right sided weakness. despite problems with pronouncing words clearly, patient is able to follow the directions without problems. his comprehension remains intact. no acute pain or shortness of breath reported and witnessed Review of Systems Review of Systems: All systems reviewed & are unremarkable except as noted in HPI & below Physical Exam Constitutional: WD/WN, vitals as above Eyes: PERRL, conjunctivae normal, anicteric sclerae EOM intact bilaterally Neck: trachea midline, no thyromegaly normal visual inspection Cardiovascular: Rate/Rhythm: regular rate and regular rhythm Gastrointestinal (Abdomen): normal bowel sounds, soft, nontender, no hepatosplenomegaly Psychiatric: Orientation: alert and cooperative Results & Data ([facility]) Vital Signs (Past 12 Hours) Vital Signs Temp Pulse Pulse Resp BP BP Pulse Ox 06/30/19 15:25 36.6 C 76 18 183/92 H 93 06/30/19 15:24 76 06/30/19 12:44 184/84 H 06/30/19 11:20 36.4 C L 73 18 204/105 H 96 06/30/19 08:00 69 06/30/19 07:05 36.4 C L 86 19 189/95 H 94
[2019-06-30] MEDS: LABETALOL HCL 100 MG TAB PO SCH (18:26)
[2019-06-30] MEDS: FINASTERIDE 5 MG TAB PO SCH (19:41)
[2019-06-30] MEDS: TAMSULOSIN HCL 0.4 MG CAP PO SCH (19:41)
[2019-06-30] MEDS: cephALEXin 500 MG CAP PO SCH (21:40)
[2019-06-30] MEDS: levETIRAcetam 500 MG TAB PO SCH (21:41)
[2019-07-01] MEDS: LABETALOL HCL 100 MG TAB PO SCH ×2 (05:45→18:53)
[2019-07-01 05:46] LABS: Basophils # (auto) 0.04 K/uL (0-0.2); Basophils % (auto) 0.4 %; Eosinophils # (auto) 0.08 K/uL (0-0.5); Eosinophils % (auto) 0.9 %; Hematocrit (blood only) 45.5 % (42-52); Hemoglobin 15.5 g/dL (14.0-18.0); Immature Granulocytes # (auto) 0.01 K/uL (0.00-0.02); Immature Granulocytes % (auto) 0.1 %; Lymphocytes # (auto) 1.87 K/uL (1.2-3.4); Mean Corpuscular Hemoglobin 32.2 pg (25-34); Mean Corpuscular Hgb Conc 34.1 g/dL (32-36); Mean Corpuscular Volume 94.6 fL (80-100); Mean Platelet Volume 10.1 fL (7.4-10.4); Monocytes # (auto) 0.62 K/uL (0.11-0.59); Monocytes % (auto) 6.6 %; Neutrophils # (auto) 6.72 K/uL (1.4-6.5); Platelet Count 232 K/uL (130-400); RDW Standard Deviation 45.3 fL (36.4-46.3); Red Blood Count 4.81 M/uL (4.7-6.1); White Blood Count 9.34 K/uL (4.8-10.8)
[2019-07-01 06:23] LABS: Calcium 8.8 mg/dl (8.5-10.1); Creatinine Clr Calc Pharmacy 49.4 ml/min; Est GFR (African American) 50.2; Est GFR (Non-African American) 43.3; Potassium 3.6 mmol/L (3.5-5.1)
--- NOTE | 2019-07-01 08:55 | CT Scan Report ---
CT SCAN OF THE BRAIN WITHOUT IV CONTRAST CLINICAL HISTORY: Lacunar infarcts. COMPARISON STUDY: CT and MRI of the brain dated 06/29/2019. CT of the brain dated 09/15/2014. TECHNIQUE: Unenhanced axial CT scan of the brain is performed from the vertex to the skull base. A do se lowering technique was utilized adhering to the principles of ALARA. CT DOSE: 537.48 mGy.cm FINDINGS: Brain parenchyma: There are age-related involutional changes noting advanced confluent subcortical a nd periventricular microangiopathic change. Foci of high right frontal parietal and right posterior p arietal encephalomalacia are unchanged and consistent with remote insults. There is no hemorrhage, ma ss effect, or evidence of acute territorial ischemia by CT criteria. There is increasing low-attenuat ion identified within the left basal ganglia/sadler radiata consistent with an evolving lacunar infar ct. Hyperdensity deep to the craniotomy site is unchanged dating back to 2014 and likely related to p revious surgery. Ventricles, sulci, cisterns: Prominent secondary to involutional change. Intracranial vasculature: There is atherosclerotic calcification of the cavernous carotid and vertebr al arteries. Calvarium: There is postoperative change from right-sided craniotomy. There is a left frontal tricia ho le. Sinuses and mastoids: There is moderate mucosal thickening within the maxillary antra, left greater t fernandez right. Moderate mucosal thickening is also seen within the right frontal sinus, the ethmoid sinus es, and the left sphenoid sinus. The mastoid air cells are well pneumatized. Orbits: The bony orbits are grossly intact. IMPRESSION: 1. Senescent and postoperative change as above with no hemorrhage, mass effect, or evidence of acute territorial ischemia by CT criteria. 2. Evolving lacunar infarct in the left centrum semiovale/basal ganglia. 3. Hyperdensity deep to the craniotomy site has been present dating back to 2014 and is likely relate d to previous surgery. Subdural hemorrhage is considered much less likely. ACT 112: Negative or not required by law. Electronically signed by: Kvein Poon M.D. 07/01/2019 8:53 AM
[2019-07-01] MEDS: ATORVASTATIN 40 MG TAB PO SCH (08:58)
[2019-07-01] MEDS: ASPIRIN 81 MG ECTAB PO SCH (08:58)
[2019-07-01] MEDS: levETIRAcetam 500 MG TAB PO SCH ×2 (08:58→20:24)
[2019-07-01] MEDS: MULTIVITAMIN TAB PO SCH (08:58)
[2019-07-01] MEDS: CEROVITE ADV FORMULA TAB PO SCH (08:58)
[2019-07-01] MEDS: DOCUSATE SODIUM 100 MG CAP PO SCH ×2 (08:58→20:24)
[2019-07-01] MEDS: AMLODIPINE BESYLATE 5 MG TAB PO SCH (08:58)
[2019-07-01] MEDS: TAMSULOSIN HCL 0.4 MG CAP PO SCH (08:59)
[2019-07-01] MEDS: cephALEXin 500 MG CAP PO SCH ×2 (08:59→20:24)
[2019-07-01] MEDS: FINASTERIDE 5 MG TAB PO SCH (08:59)
--- NOTE | 2019-07-01 14:33 | Electrocardiogram Report ---
Test Reason : Blood Pressure : / mmHG Vent. Rate : 074 BPM Atrial Rate : 074 BPM P-R Int : 178 ms QRS Dur : 134 ms QT Int : 456 ms P-R-T Axes : 045 073 008 degrees QTc Int : 506 ms Normal sinus rhythm Right bundle branch block Possible Inferior infarct , age undetermined Abnormal ECG When compared with ECG of 30-JUN-2019 06:36, Borderline criteria for Inferior infarct are now Present T wave inversion now evident in Inferior leads Confirmed by Zander Hinojosa ([id number]) on 07/01/2019 2:33:23 PM Referred By: [facility] Confirmed By:Zander Hinojosa
--- NOTE | 2019-07-01 14:43 | Hospitalist Progress Note ---
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 -In ED patient significantly hypertensive CTA neck-. No aneurysm, dissection, high-grade stenosis or proximal branch occlusion. Additional findings as above. CTA head-No intraluminal thrombus or abrupt vessel cut off within the intracranial vessels. Moderate atherosclerotic plaque. 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 MRI brain- 2 adjacent punctate acute lacunar infarct within the left basal ganglia. Trace right parietal extra-axial signal abnormality. This could represent trace subdural hematoma versus chronic dural thickening from postoperative change. Acute on chronic paranasal sinusitis neurology recommends follow up CT head in 1 week for any signs of hemorrhagic conversion aspirin and atorvastatin to prevent stroke recurrence continue speech therapy/PT/OT evaluations - will likely need physical therapy placement or assisted facility placement for physical rehab continue management of blood pressure as below (2) Hypertensive emergency: -blood pressure elevated on admission -06/30/2019 will try to target better blood pressure with amlodipine 10 mg daily, labetalol 100 mg q12 hours, clonidine patch. also there are prn IV labetalol and prn IV hydralazine with parameters. allergies reported to MAGGI inhibitors or ARBs in the chart -07/01/2019 continue current blood pressure management which is correcting blood pressures to around systolic of 140s which is much improved compared to 06/30/2019. 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 which he is currently on Keflex for chronic suppressive therapy (4) History of seizures: -secondary to history of SDH in the past -Continue Keppra 1000 mg BID (5) Alcohol dependence: -pt with prior hx of ETOH abuse prior to SDH, drinks 1 beer nightly previous to this admission -on AWSS scale with prn lorazepam -monitor closely for any possible alcohol withdrawal (6) CKD (chronic kidney disease), stage III: -renal function at baseline (7) BPH (benign prostatic hyperplasia): -finasteride -continue tamsulosin (8) DVT prophylaxis: SCDS/TEDS for now Subjective Patient continues to have left sided weakness of upper and lower extremities with left sided facial droop. Blood pressures are better controlled today. patie nt cooperative. he does not report of acute pain or shortness of breath. no other pertinent positives on review of systems Review of Systems Review of Systems: All systems reviewed & are unremarkable except as noted in HPI & below Physical Exam Constitutional: WD/WN, vitals as above Eyes: PERRL, conjunctivae normal, anicteric sclerae EOM intact bilaterally ENMT: external ear and nose normal, oropharynx normal Neck: trachea midline, no thyromegaly normal visual inspection Cardiovascular: Rate/Rhythm: regular rate and regular rhythm Gastrointestinal (Abdomen): normal bowel sounds, soft, nontender, no hepatosplenomegaly Musculoskeletal: left sided motor weakness of upper and lower extremities Neurologic: left sided facial droop Psychiatric: Orientation: alert and cooperative Results & Data ([facility]) Vital Signs (Past 12 Hours) Vital Signs Temp Pulse Resp BP Pulse Ox 07/01/19 11:00 36.5 C 81 18 144/85 H 93 07/01/19 07:12 36.5 C 75 18 130/70 94 07/01/19 03:42 180/100 H 07/01/19 02:55 36.6 C 77 19 184/85 H 95
--- NOTE | 2019-07-01 15:50 | Neurology Progress Note ---
Date of Service July 01, 2019 Assessment & Plan (1) Right sided weakness: 1. MRI brain- 2 adjacent punctate acute lacunar infarct left basal ganglia- CT head 2/ expected lacunar infarct evolution 2. 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 optimize HTN, HLD, DM LDL <70 4. PT/OT speech for discharge needs will need rehab at discharge 5. aspirin 81 mg only at this time 6. follow up CT head in 1 week for any signs of hemorrhagic conversion 7. TTE- EF 60-65 % no ASD follow up in 4-6 weeks after discharge from rehab Brianne David PAC schedule (2) Stroke-like symptoms: as above (3) Facial droop: as above (4) History of craniotomy: as above Supervising Physician Co-Signing Physician Notes I have seen and discussed above patient with Dr Brianne Coelho, neurology. PT seen and examined. Fu CT reviewed. Pt awake, alert, follow simple commands. No field cut, flat RNLF, marked dysarthria. RUE 05/30 rle trace. Impr L lacunar infarction, hx of SDH, pt clinically worse since last PM. Single antiplt tx due to hx of SDH, avoid hypotension, LDL <70. Hx of sz, continue Keppra. Will sign off please reconsult if needed.JESSA Coelho MD Anne Marie Lowry is a 79 year old male with PMH -SDH status post craniotomy, recurrent tricia hole infections on chronic suppressive therapy, seizure disorder, CKD stage III, mild aortic stenosis, BPH. He presented to [facility] ED due secondary to worsening dysarthria. He suffered a fall on 06/28/2019 and see in the ED. He resides at [facility] when he fell on his bottom, denies hitting his head or losing consciousness. He then had slurred speech and difficulty with mobility. Blood pressure was systolically over 200. CT scan of head without contrast x2 which revealed a 3 mm extra-axial hyperdense focus along the right parietal region which felt to be consistent to his prior craniotomy site and postop change. He was significantly hypertensive during evaluation, but slurred speech had improved and patient was discharged back to [facility]. When he returned back to [facility] son had breakfast with him and was having significant difficulty using right upper extremity to eat breakfast. At baseline he ambulates with cane or walker and is independent of ADLs. Son noticed slurred speech to progressively get worse; therefore brought back to ED for further evaluation. Son admits to continued slurred speech, right facial droop and difficulty with mobility. Today he is sleeping but wakes slowly. He is having more issues with speech and right sided weakness. denies CP, SOB, abdominal pain, N, V, vision changes, new bowel or bladder issues. Physical Exam Physical Exam: Gen: alert with voice command, can't say button but able to say thumb lungs course breath sounds CV RRR slurred speech worsened today right arm unable to lift or maintain against gravity right leg unable to lift against gravity Results & Data Vital Signs (Past 12 Hours) Vital Signs Temp Pulse Pulse Resp BP Pulse Ox 07/01/19 15:22 72 07/01/19 11:00 36.5 C 81 18 144/85 H 93 07/01/19 08:00 72 07/01/19 07:12 36.5 C 75 18 130/70 94 Laboratory Results 07/01/19 07/01/19 07/01/19 Range/Units 05:14 05:14 05:14 WBC 9.34 (4.8-10.8) K/uL RBC 4.81 (4.7-6.1) M/uL Hgb 15.5 (14.0-18.0) g/dL Hct 45.5 (42-52) % MCV 94.6 (80-100) fL MCH 32.2 (25-34) pg MCHC 34.1 (32-36) g/dL RDW Std Deviation 45.3 (36.4-46.3) fL RDW Coeff of Zahra 13.0 (11.5-14.5) % Plt Count 232 (130-400) K/uL MPV 10.1 (7.4-10.4) fL Immature Gran % (Auto) 0.1 % Neut % (Auto) 72.0 % Lymph % (Auto) 20.0 % [place] % (Auto) 6.6 % Eos % (Auto) 0.9 % Baso % (Auto) 0.4 % Immature Gran # (Auto) 0.01 (0.00-0.02) K/uL Neut # (Auto) 6.72 H (1.4-6.5) K/uL Lymph # (Auto) 1.87 (1.2-3.4) K/uL [place] # (Auto) 0.62 H (0.11-0.59) K/uL Eos # (Auto) 0.08 (0-0.5) K/uL Baso # (Auto) 0.04 (0-0.2) K/uL Sodium 138 (136-145) mmol/L Potassium 3.6 (3.5-5.1) mmol/L Chloride 105 (98-107) mmol/L Carbon Dioxide 26 (21-32) mmol/L Anion Gap 7.0 (3-11) BUN 21 H (7-18) mg/dl Creatinine 1.50 H (0.6-1.4) mg/dl Est Cr Clr Drug Dosing 49.4 ml/min Est GFR ( Amer) 50.2 Est GFR (Non-Af Amer) 43.3 BUN/Creatinine Ratio 14.0 (10-20) Glucose 145 H (70-99) mg/dl Calcium 8.8 (8.5-10.1) mg/dl Magnesium 2.0 (1.8-2.4) mg/dl Diagnostic Findings CT head 07/01/19- Senescent and postoperative change as above with no hemorrhage, mass effect, or evidence of acute territorial ischemia by CT criteria. Evolving lacunar infarct in the left centrum semiovale/basal ganglia. Hyperdensity deep to the craniotomy site has been present dating back to 2014 and is likely related to previous surgery. Subdural hemorrhage is considered much less likely.
[2019-07-02] MEDS: LABETALOL HCL 100 MG TAB PO SCH ×2 (05:59→18:06)
[2019-07-02 06:07] LABS: Basophils # (auto) 0.04 K/uL (0-0.2); Basophils % (auto) 0.4 %; Eosinophils # (auto) 0.29 K/uL (0-0.5); Eosinophils % (auto) 2.8 %; Hematocrit (blood only) 45.1 % (42-52); Hemoglobin 15.5 g/dL (14.0-18.0); Immature Granulocytes # (auto) 0.02 K/uL (0.00-0.02); Immature Granulocytes % (auto) 0.2 %; Lymphocytes # (auto) 3.09 K/uL (1.2-3.4); Lymphocytes % (auto) 29.8 %; Mean Corpuscular Hemoglobin 32.4 pg (25-34); Mean Corpuscular Hgb Conc 34.4 g/dL (32-36); Mean Corpuscular Volume 94.4 fL (80-100); Monocytes # (auto) 0.82 K/uL (0.11-0.59); Monocytes % (auto) 7.9 %; Neutrophils % (auto) 58.9 %; Platelet Count 259 K/uL (130-400); RDW Coefficient of Variation 13.3 % (11.5-14.5); RDW Standard Deviation 45.9 fL (36.4-46.3); Red Blood Count 4.78 M/uL (4.7-6.1); White Blood Count 10.36 K/uL (4.8-10.8)
[2019-07-02 06:37] LABS: BUN Creatinine Ratio 20.3 (10-20); Calcium 9.2 mg/dl (8.5-10.1); Creatinine Clr Calc Pharmacy 40.1 ml/min; Est GFR (Non-African American) 33.6; Potassium 3.5 mmol/L (3.5-5.1)
[2019-07-02] MEDS ORDERED: POTASSIUM CHLORIDE / WTR 10 MEQ/100 ML PLCT IV ONE (08:00)
[2019-07-02] MEDS: SODIUM CHLORIDE 0.9% 1000ML 1,000 ML IV SCH ×2 (09:30→21:14)
[2019-07-02] MEDS: MULTIVITAMIN TAB PO SCH (09:31)
[2019-07-02] MEDS: CEROVITE ADV FORMULA TAB PO SCH (09:31)
[2019-07-02] MEDS: ASPIRIN 81 MG ECTAB PO SCH (09:32)
[2019-07-02] MEDS: FINASTERIDE 5 MG TAB PO SCH (09:32)
[2019-07-02] MEDS: TAMSULOSIN HCL 0.4 MG CAP PO SCH (09:32)
[2019-07-02] MEDS: cephALEXin 500 MG CAP PO SCH ×2 (09:32→21:31)
[2019-07-02] MEDS: AMLODIPINE BESYLATE 5 MG TAB PO SCH (09:32)
[2019-07-02] MEDS: levETIRAcetam 500 MG TAB PO SCH ×2 (09:32→21:32)
[2019-07-02] MEDS: ATORVASTATIN 40 MG TAB PO SCH (09:32)
[2019-07-02] MEDS: DOCUSATE SODIUM 100 MG CAP PO SCH ×2 (09:32→21:31)
--- NOTE | 2019-07-02 09:55 | Hospitalist Progress Note ---
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 -In ED patient significantly hypertensive CTA neck-. No aneurysm, dissection, high-grade stenosis or proximal branch occlusion. Additional findings as above. CTA head-No intraluminal thrombus or abrupt vessel cut off within the intracranial vessels. Moderate atherosclerotic plaque. 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 MRI brain- 2 adjacent punctate acute lacunar infarct within the left basal ganglia. Trace right parietal extra-axial signal abnormality. This could represent trace subdural hematoma versus chronic dural thickening from postoperative change. Acute on chronic paranasal sinusitis neurology recommends follow up CT head in 1 week for any signs of hemorrhagic conversion aspirin and atorvastatin to prevent stroke recurrence continue speech therapy/PT/OT evaluations - will likely need physical therapy placement or custodial facility placement for physical rehab continue management of blood pressure as below (2) Hypertensive emergency: -blood pressure elevated on admission -06/30/2019 will try to target better blood pressure with amlodipine 10 mg daily, labetalol 100 mg q12 hours, clonidine patch. also there are prn IV labetalol and prn IV hydralazine with parameters. allergies reported to MAGGI inhibitors or ARBs in the chart -07/01/2019 continue current blood pressure management which is correcting blood pressures to around systolic of 140s which is much improved compared to 06/30/2019. 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 which he is currently on Keflex for chronic suppressive therapy (4) History of seizures: -secondary to history of SDH in the past -Continue Keppra 1000 mg BID (5) Alcohol dependence: -pt with prior hx of ETOH abuse prior to SDH, drinks 1 beer nightly previous to this admission -has been on AWSS scale with prn lorazepam -no current evidence of alcohol withdrawal -patient may be transitioned from telemetry to medical john on 07/02/2019 (6) CKD (chronic kidney disease), stage III: -acute kidney injury on chronic kidney disease stage III -recent creatinine around 1.5 range -pre renal acute kidney on 07/02/2019 with BUN of 38 and creatinine 1.8 -IV fluids to be given on 07/02/2019 (7) BPH (benign prostatic hyperplasia): -finasteride -continue tamsulosin (8) DVT prophylaxis: SCDS/TEDS for now Subjective Patient seen and examined at bedside. He requires assistance with feeding by nurse. continues to have left sided weakness and facial droop. His speech sounds better today. labs show elevated creatinine suggestive of pre-renal acute kidney injury. patient to get IV fluids. patient does not report of any pain or probl ems with breathing Review of Systems Review of Systems: All systems reviewed & are unremarkable except as noted in HPI & below Physical Exam Constitutional: WD/WN, vitals as above Eyes: PERRL, conjunctivae normal, anicteric sclerae EOM intact bilaterally ENMT: external ear and nose normal, oropharynx normal Neck: trachea midline, no thyromegaly normal visual inspection Cardiovascular: Rate/Rhythm: regular rate and regular rhythm Gastrointestinal (Abdomen): normal bowel sounds, soft, nontender, no hepatosplenomegaly Neurologic: requires assistance with feeding by nurse. continues to have left sided weakness and facial droop. His speech sounds better today Psychiatric: Orientation: alert and cooperative Results & Data ([facility]) Vital Signs (Past 12 Hours) Vital Signs Temp Pulse Pulse Resp BP Pulse Ox Pulse Ox 07/02/19 07:38 36.6 C 67 18 132/85 93 07/02/19 03:05 36.6 C 69 17 144/77 H 95 07/02/19 01:00 94 07/01/19 23:22 77 07/01/19 23:05 37.1 C 77 18 124/72 94
[2019-07-03] MEDS: LABETALOL HCL 100 MG TAB PO SCH ×2 (06:37→17:09)
[2019-07-03 07:04] LABS: BUN Creatinine Ratio 25.5 (10-20); Calcium 8.4 mg/dl (8.5-10.1); Creatinine Clr Calc Pharmacy 45.6 ml/min; Est GFR (African American) 45.4; Est GFR (Non-African American) 39.2; Potassium 3.9 mmol/L (3.5-5.1)
[2019-07-03 07:07] LABS: Albumin Globulin Ratio 0.8 (0.9-2); Bilirubin,Total 0.9 mg/dl (0.2-1)
[2019-07-03] MEDS: levETIRAcetam 500 MG TAB PO SCH ×2 (08:04→21:16)
[2019-07-03] MEDS: MULTIVITAMIN TAB PO SCH (08:04)
[2019-07-03] MEDS: ATORVASTATIN 40 MG TAB PO SCH (08:04)
[2019-07-03] MEDS: DOCUSATE SODIUM 100 MG CAP PO SCH ×2 (08:04→21:17)
[2019-07-03] MEDS: ASPIRIN 81 MG ECTAB PO SCH (08:05)
[2019-07-03] MEDS: cephALEXin 500 MG CAP PO SCH ×2 (08:05→21:16)
[2019-07-03] MEDS: AMLODIPINE BESYLATE 5 MG TAB PO SCH (08:05)
[2019-07-03] MEDS: CEROVITE ADV FORMULA TAB PO SCH (08:05)
[2019-07-03] MEDS: TAMSULOSIN HCL 0.4 MG CAP PO SCH (08:06)
[2019-07-03] MEDS: FINASTERIDE 5 MG TAB PO SCH (08:06)
[2019-07-03] MEDS ORDERED: MICONAZOLE NITRATE POWDER 43 GM EXT PRN (10:01)
[2019-07-03] MEDS: SODIUM CHLORIDE 0.9% 1000ML 1,000 ML IV SCH ×2 (10:13→21:17)
--- NOTE | 2019-07-03 11:26 | Hospitalist Progress Note ---
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 -In ED patient significantly hypertensive CTA neck-. No aneurysm, dissection, high-grade stenosis or proximal branch occlusion. Additional findings as above. CTA head-No intraluminal thrombus or abrupt vessel cut off within the intracranial vessels. Moderate atherosclerotic plaque. 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 MRI brain- 2 adjacent punctate acute lacunar infarct within the left basal ganglia. Trace right parietal extra-axial signal abnormality. This could represent trace subdural hematoma versus chronic dural thickening from postoperative change. Acute on chronic paranasal sinusitis neurology recommends follow up CT head in 1 week for any signs of hemorrhagic conversion aspirin and atorvastatin to prevent stroke recurrence continue speech therapy/PT/OT evaluations - will likely need physical therapy placement or [facility] facility placement for physical rehab continue management of blood pressure as below (2) Hypertensive emergency: -blood pressure elevated on admission -06/30/2019 will try to target better blood pressure with amlodipine 10 mg daily, labetalol 100 mg q12 hours, clonidine patch. also there are prn IV labetalol and prn IV hydralazine with parameters. allergies reported to MAGGI inhibitors or ARBs in the chart -07/01/2019 continue current blood pressure management which is correcting blood pressures to around systolic of 140s which is much improved compared to 06/30/2019. 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 which he is currently on Keflex for chronic suppressive therapy (4) History of seizures: -secondary to history of SDH in the past -Continue Keppra 1000 mg BID (5) Alcohol dependence: -pt with prior hx of ETOH abuse prior to SDH, drinks 1 beer nightly previous to this admission -has been on AWSS scale with prn lorazepam -no current evidence of alcohol withdrawal -patient transitioned from telemetry to medical john on 07/02/2019 (6) CKD (chronic kidney disease), stage III: -acute kidney injury on chronic kidney disease stage III -recent creatinine around 1.5 range -pre renal acute kidney on 07/02/2019 with BUN of 38 and creatinine 1.8 -IV fluids to be given on 07/02/2019 -BUN 42, creatinine 1.63 on 07/03/2019, continue IV fluids (7) BPH (benign prostatic hyperplasia): -finasteride -continue tamsulosin (8) DVT prophylaxis: SCDS/TEDS for now Subjective Renal function moderate improving with IV fluids. Patient continues to have left sided weakness and left facial droop. patient does not have acute pain. no respiratory distress. breathing on room air. patient does not have new complaints Review of Systems Review of Systems: All systems reviewed & are unremarkable except as noted in HPI & below Physical Exam Constitutional: WD/WN, vitals as above Eyes: PERRL, conjunctivae normal, anicteric sclerae EOM intact bilaterally ENMT: external ear and nose normal, oropharynx normal Neck: trachea midline, no thyromegaly normal visual inspection Respiratory: normal respiratory effort, lungs clear to auscultation Cardiovascular: Rate/Rhythm: regular rate and regular rhythm Gastrointestinal (Abdomen): normal bowel sounds, soft, nontender, no hepatosplenomegaly Musculoskeletal: Head/Neck/Chest: head atraumatic Neurologic: left sided weakness and left facial droop Psychiatric: Orientation: alert and cooperative Results & Data ([facility]) Vital Signs (Past 12 Hours) Vital Signs Temp Pulse Resp BP Pulse Ox 07/03/19 07:58 36.7 C 67 18 155/80 H 96 07/03/19 06:36 69 170/83 H 07/02/19 23:37 36.6 C 74 18 138/74 93
--- NOTE | 2019-07-03 18:22 | CT Scan Report ---
CT head/brain wo con CLINICAL HISTORY: 79 years-old Male presenting with follow-up CT head for hemorrhagic conversion. TECHNIQUE: Multidetector CT imaging of the head was performed without the use of intravenous contrast . IV contrast: None. One or more dose lowering techniques were used consistent with the principles of ALARA (as low as reasonably achievable), including automatic exposure control, mA or kV adjustment t o individual patient size, and/or use of iterative reconstruction. COMPARISON: None. CT DOSE (mGy.cm): The estimated cumulative dose is 614.27 mGy.cm. FINDINGS: Payment Analyst topogram: Unremarkable. Proportional ventricular and sulcal prominence, likely age-related parenchymal volume loss. No hemorr joseph. Redemonstration of the evolving acute lacunar infarct in the caudate body and centrum semiovale white matter. Background periventricular and subcortical white matter hypoattenuation. Redemonstrati on of the cortical encephalomalacia in the right frontal, parietal, and temporal regions. No acute te rritorial infarct. No mass effect or midline shift. Chronic dural thickening in the right craniectomy bed. No convincing evidence of an extra-axial fluid collection. Mucosal thickening in the left sphen oid sinus. Craniotomy changes as mentioned in the calvarium. IMPRESSION: 1. No evidence of hemorrhagic conversion of the evolving acute left caudate body/centrum semiovale w philip matter infarct. 2. Additional stable findings in comparison to most recent prior. ACT 112: Negative or not required by law. Electronically signed by: Nakul Otero M.D. 07/03/2019 6:20 PM
[2019-07-04] MEDS: LABETALOL HCL 100 MG TAB PO SCH (06:11)
[2019-07-04 07:51] LABS: Calcium 8.6 mg/dl (8.5-10.1); Creatinine Clr Calc Pharmacy 49.8 ml/min; Est GFR (African American) 50.6; Est GFR (Non-African American) 43.7
[2019-07-04] MEDS ORDERED: HydrALAZINE HCL 20 MG/ML VIAL IV STA (08:10)
[2019-07-04] MEDS: ASPIRIN 81 MG ECTAB PO SCH (08:36)
[2019-07-04] MEDS: TAMSULOSIN HCL 0.4 MG CAP PO SCH (08:36)
[2019-07-04] MEDS: MULTIVITAMIN TAB PO SCH (08:36)
[2019-07-04] MEDS: AMLODIPINE BESYLATE 5 MG TAB PO SCH (08:36)
[2019-07-04] MEDS: CEROVITE ADV FORMULA TAB PO SCH (08:36)
[2019-07-04] MEDS: FINASTERIDE 5 MG TAB PO SCH (08:36)
[2019-07-04] MEDS: ATORVASTATIN 40 MG TAB PO SCH (08:36)
[2019-07-04] MEDS: cephALEXin 500 MG CAP PO SCH (08:37)
[2019-07-04] MEDS: levETIRAcetam 500 MG TAB PO SCH (08:37)
[2019-07-04] MEDS: DOCUSATE SODIUM 100 MG CAP PO SCH (08:38)
[2019-07-04] MEDS ORDERED: POLYETHYLENE (MIRALAX) 17 GM PACK PO SCH (12:00)
[2019-07-04] MEDS ORDERED: SENNA 8.6 MG TAB PO SCH (12:00)
[2019-07-04] MEDS: MAGNESIUM HYDROXIDE SUSP 30 ML UDC PO ONE ×2 (12:52→12:54)
--- NOTE | 2019-07-04 14:10 | Hospitalist Progress Note ---
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 -In ED patient significantly hypertensive admission CTA neck-. No aneurysm, dissection, high-grade stenosis or proximal branch occlusion. Additional findings as above. admission CTA head-No intraluminal thrombus or abrupt vessel cut off within the intracranial vessels. Moderate atherosclerotic plaque. 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 MRI brain- 2 adjacent punctate acute lacunar infarct within the left basal ganglia. Trace right parietal extra-axial signal abnormality. This could represent trace subdural hematoma versus chronic dural thickening from postoperative change. Acute on chronic paranasal sinusitis aspirin and atorvastatin to prevent stroke recurrence, and blood pressure controlled was obtained in the hospital stay repeat CT Head 07/03/2019: Proportional ventricular and sulcal prominence, likely age-related parenchymal volume loss. No hemorrhage. Redemonstration of the evolving acute lacunar infarct in the caudate body and centrum semiovale white matter. Background periventricular and subcortical white matter hypoattenuation. Redemonstration of the cortical encephalomalacia in the right frontal, parietal, and temporal regions. No acute territorial infarct. No mass effect or midline shift. Chronic dural thickening in the right craniectomy bed. No convincing evidence of an extra-axial fluid collection. Mucosal thickening in the left sphenoid sinus. Craniotomy changes as mentioned in the calvarium. IMPRESSION: 1. No evidence of hemorrhagic conversion of the evolving acute left caudate body/centrum semiovale white matter infarct. discharge to [facility] for physical therapy for stroke patient has allergies to MAGGI inhibitors or ARBs and NSAIDs and avoid these types of medications in future blood pressure medication control scheduled appointments 07/08/2019 1:00 PM Provider Surya He MD Department General Internal Medicine [facility] 07/19/2019 9:00 AM Provider Surya He MD Department General Internal Medicine [facility] an appointment needs to be made for [facility] neurology clinic for 4 to 6 weeks after discharge from physical rehabilitation [facility] neurology clinic is located at [facility] on [address] , [place] [address]. call [phone] to make appointment (2) Hypertensive emergency: -blood pressure elevated on admission -06/30/2019 will try to target better blood pressure with amlodipine 10 mg daily, labetalol 100 mg q12 hours, clonidine patch. also there are prn IV labetalol and prn IV hydralazine with parameters. allergies reported to MAGGI inhibitors or ARBs in the chart -07/01/2019 continue current blood pressure management which is correcting blood pressures to around systolic of 140s which is much improved compared to 06/30/2019. 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 which he is currently on Keflex for chronic suppressive therapy (4) History of seizures: -secondary to history of SDH in the past -Continue Keppra 1000 mg BID (5) Alcohol dependence: -pt with prior hx of ETOH abuse prior to SDH, drinks 1 beer nightly previous to this admission -has been on AWSS scale with prn lorazepam -no current evidence of alcohol withdrawal -patient transitioned from telemetry to medical john on 07/02/2019 (6) CKD (chronic kidney disease), stage III: -acute kidney injury on chronic kidney disease stage III -recent creatinine around 1.5 range -pre renal acute kidney on 07/02/2019 with BUN of 38 and creatinine 1.8 -IV fluids to be given on 07/02/2019 -BUN 42, creatinine 1.63 on 07/03/2019, continued IV fluids -creatinine on 07/04/2019 is 1.49 and IV fluids are stopped (7) BPH (benign prostatic hyperplasia): -finasteride -continue tamsulosin (8) DVT prophylaxis: SCDS/TEDS while inpatient Discharge Diagnosis: acute stroke (acute cerebrovascular accident) with right sided weakness and right facial droop and dysarthria, Hypertensive emergency, acute kidney injury on chronic kidney disease stage III Subjective patient's blood pressure is controlled. was given additional bowel regimen medications. patient does not have new neurological changes. continues to have right sided weakness with right sided facial droop and dysarthria. patient denies acute pain. breathing comfortable on room air. no other complaints on review of systems. plans for discharge discussed with patient Review of Systems Review of Systems: All systems reviewed & are unremarkable except as noted in HPI & below Physical Exam Constitutional: WD/WN, vitals as above Eyes: PERRL, conjunctivae normal, anicteric sclerae EOM intact bilaterally ENMT: external ear and nose normal, oropharynx normal Neck: trachea midline, no thyromegaly normal visual inspection Respiratory: normal respiratory effort, lungs clear to auscultation Cardiovascular: Rate/Rhythm: regular rate and regular rhythm Gastrointestinal (Abdomen): normal bowel sounds, soft, nontender, no hepatosplenomegaly Musculoskeletal: Head/Neck/Chest: head atraumatic Neurologic: awake (right sided weakness, right sided facial droop, dysarthria) Psychiatric: Orientation: alert and cooperative Results & Data ([facility]) Vital Signs (Past 12 Hours) Vital Signs Temp Pulse Resp BP Pulse Ox 07/04/19 09:31 66 153/78 H 07/04/19 07:49 36.5 C 67 20 172/80 H 96
--- NOTE | 2019-07-04 14:17 | Discharge Summary ---
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 Of significance patient was last seen in ED last evening on 06/28/2019 approximately 2 hours after suffering a fall. He resides at [facility] when he fell on his bottom, denies hitting his head or losing consciousness. When son came to see him he noted significant slurred speech and difficulty with mobility; therefore he was brought to ED for further evaluation. At time of the fall son also noted his blood pressure to be systolically over 200. During ED evaluation yesterday patient did receive CT scan of head without contrast x2 which revealed a 3 mm extra-axial hyperdense focus along the right parietal region which felt to be consistent to his prior craniotomy site and postop change. Repeat image was unchanged. He was significantly hypertensive during evaluation, but slurred speech had improved and patient was discharged back to [facility]. When he returned back to [facility] son had breakfast with him and patient was having significant difficulty using right upper extremity to eat breakfast. At baseline patient is independent and ambulates with cane or walker and is independent of ADLs. Son noticed slurred speech to progressively get worse; therefore brought back to ED for further evaluation. Currently patient offers no complaints and denies total ROS. Son admits to continued slurred speech, right facial droop and difficulty with mobility. "When you test his strength his strength is there but he has difficulty holding up his right arm with eyes closed and difficulty with mobility." Patient denies any recent illness, fever, chills, sweats, lightheadedness, dizziness, headache, change in vision, change in hearing, diplopia, difficulty swallowing, chest pain, shortness with, palpitation, nausea, vomiting, diarrhea, change in bowel or urinary habits. Up until last evening his appetite had been normal and had been in normal state of health. In ED patient significantly hypertensive, 224/106 during my evaluation. He otherwise remained hemodynamically stable. He underwent CT scan of head without contrast which was unchanged from yesterda y's images. 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 Admission Exam Per Admitting Provider Constitutional: WD/WN, morbidly obese, elderly male, vitals as above, NAD, sitting up in bed, pleasant, dysarthria Head: Normocephalic, patient with bilateral bur holes, healed, no surrounding erythema Eyes: Left pupil dilated and less reactive than right, EOMI, conjunctivae normal, anicteric sclerae ENMT: external ear and nose normal, oropharynx normal Neck: trachea midline, no thyromegaly normal visual inspection Respiratory: normal respiratory effort, lungs clear to auscultation, no wheeze, rales, rhonchi. Normal insp/exp effort, no accessory muscle use Cardiovascular: RRR, 2/6 harsh AD best noted RUSB, no edema Vessels: no JVD or carotid bruit Chest: normal inspection of chest Abdomen: Protuberant abdomen, normal bowel sounds, soft, nontender, no hepatosplenomegaly Musculoskeletal: no cyanosis or clubbing, 4/5 bilaterally upper and lower Skin: no rashes, warm and dry normal turgor Neurologic: PERRL, EOMI, accommodation nl, right facial droop, dysarthria, mild tongue deviation CN's II-XI intact bilaterally and moves all extremities,+pronator drift Psychiatric: A+Ox3, euthymic affect Lymphatic: no cervical or axillary lymphadenopathy : deferred Principal Diagnosis acute stroke (acute cerebrovascular accident) with right sided weakness and right facial droop and dysarthria, Hypertensive emergency, acute kidney injury on chronic kidney disease stage III Discharge Exam Constitutional WD/WN, vitals as above Eyes PERRL, conjunctivae normal, anicteric sclerae EOM intact bilaterally ENMT external ear and nose normal, oropharynx normal Neck trachea midline, no thyromegaly normal visual inspection Respiratory normal respiratory effort, lungs clear to auscultation Cardiovascular Rate/Rhythm: regular rate and regular rhythm Gastrointestinal (Abdomen) normal bowel sounds, soft, nontender, no hepatosplenomegaly Musculoskeletal Head/Neck/Chest: head atraumatic Neurologic awake (right sided weakness, right sided facial droop, dysarthria) Psychiatric Orientation: alert and cooperative Discharge Data Allergies Allergy/AdvReac Type Severity Reaction Status Date / Time MAGGI Inhibitors AdvReac Unknown 08/31/11 NO Verified 06/29/19 11:[address] RODRIGUEZ ARB-Angiotensin Receptor AdvReac Unknown 08/31/11 NO Verified 06/29/19 11:[address] MCKEON NSAIDS (Non-Steroidal AdvReac Unknown 08/31/11 NO Verified 06/29/19 11:02 Anti-Inflamma NSAIDS PER DR MCKEON Consultations 06/29/19 13:12 ED Decision to Admit Stat 06/29/19 13:57 Consult Neurology Routine 06/29/19 16:57 Consult Case Management - Discharge Planning Routine Consult Case Management - Discharge Planning Routine Ordered Studies 06/29/19 11:45 CT angio head w con Stat CT angio neck with con Stat CT head/brain wo con Stat 06/29/19 13:57 MR brain wo con Routine 07/01/19 08:00 CT head/brain wo con Routine 07/03/19 17:37 CT head/brain wo con Routine Hospital Course (1) Stroke-like symptoms: acute stroke (acute cerebrovascular accident) with right sided weakness and right facial droop and dysarthria -This is an 79-year-old male who has significant past medical history of subdural hematoma status post craniotomy, history of recurrent bur hole in fections on chronic suppressive therapy, history of seizure disorder, CKD stage III, mild aortic stenosis, BPH who presents to ED secondary to worsening dysarthria. -In ED patient significantly hypertensive admission CTA neck-. No aneurysm, dissection, high-grade stenosis or proximal branch occlusion. Additional findings as above. admission CTA head-No intraluminal thrombus or abrupt vessel cut off within the intracranial vessels. Moderate atherosclerotic plaque. 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 MRI brain- 2 adjacent punctate acute lacunar infarct within the left basal ganglia. Trace right parietal extra-axial signal abnormality. This could represent trace subdural hematoma versus chronic dural thickening from postoperative change. Acute on chronic paranasal sinusitis aspirin and atorvastatin to prevent stroke recurrence, and blood pressure controlled was obtained in the hospital stay repeat CT Head 07/03/2019: Proportional ventricular and sulcal prominence, likely age-related parenchymal volume loss. No hemorrhage. Redemonstration of the evolving acute lacunar infarct in the caudate body and centrum semiovale white matter. Background periventricular and subcortical white matter hypoattenuation. Redemonstration of the cortical encephalomalacia in the right frontal, parietal, and temporal regions. No acute territorial infarct. No mass effect or midline shift. Chronic dural thickening in the right craniectomy bed. No convincing evidence of an extra-axial fluid collection. Mucosal thickening in the left sphenoid sinus. Craniotomy changes as mentioned in the calvarium. IMPRESSION: 1. No evidence of hemorrhagic conversion of the evolving acute left caudate body/centrum semiovale white matter infarct. discharge to [facility] for physical therapy for stroke patient has allergies to MAGGI inhibitors or ARBs and NSAIDs and avoid these types of medications in future blood pressure medication control scheduled appointments 07/08/2019 1:00 PM Provider Surya He MD Department General Internal Medicine [facility] 07/19/2019 9:00 AM Provider Surya He MD Department General Internal Medicine [facility] an appointment needs to be made for [facility] neurology clinic for 4 to 6 weeks after discharge from physical rehabilitation [facility] neurology clinic is located at [facility] on [address] [place] [address], [place] [address]. call [phone] to make appointment (2) Hypertensive emergency: -blood pressure elevated on admission -06/30/2019 will try to target better blood pressure with amlodipine 10 mg daily, labetalol 100 mg q12 hours, clonidine patch. also there are prn IV labetalol and prn IV hydralazine with parameters. allergies reported to MAGGI inhibitors or ARBs in the chart -07/01/2019 continue current blood pressure management which is correcting blood pressures to around systolic of 140s which is much improved compared to 06/30/2019. 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 which he is currently on Keflex for chronic suppressive therapy (4) History of seizures: -secondary to history of SDH in the past -Continue Keppra 1000 mg BID (5) Alcohol dependence: -pt with prior hx of ETOH abuse prior to SDH, drinks 1 beer nightly previous to this admission -has been on AWSS scale with prn lorazepam -no current evidence of alcohol withdrawal -patient transitioned from telemetry to medical john on 07/02/2019 (6) CKD (chronic kidney disease), stage III: -acute kidney injury on chronic kidney disease stage III -recent creatinine around 1.5 range -pre renal acute kidney on 07/02/2019 with BUN of 38 and creatinine 1.8 -IV fluids to be given on 07/02/2019 -BUN 42, creatinine 1.63 on 07/03/2019, continued IV fluids -creatinine on 07/04/2019 is 1.49 and IV fluids are stopped (7) BPH (benign prostatic hyperplasia): -finasteride -continue tamsulosin (8) DVT prophylaxis: SCDS/TEDS while inpatient Discharge Diagnosis: acute stroke (acute cerebrovascular accident) with right sided weakness and right facial droop and dysarthria, Hypertensive emergency, acute kidney injury on chronic kidney disease stage III Total Time Total Time Spent Total Time Spent (In Minutes): 40 minutes Total Time Includes: Examination of the Patient, Discharge Planning, Medication Reconciliation and Communication With Other Providers Discharge Plan Discharge Items Patient Disposition: Transfer Inpatient Rehab Fac Reason For Visit: STROKE LIKE SYMPTOMS HTN URGENCY Discharge Diagnosis: acute stroke (acute cerebrovascular accident) with right sided weakness and right facial droop and dysarthria, Hypertensive emergency, acute kidney injury on chronic kidney disease stage III Condition on Discharge: Good Activity: Per Instructions section Non-emergency contact: Primary Care Provider and Neurologist Call non-emergency contact if: you have any medication questions Follow-up/Referrals: [facility], Feedback [Primary Care Provider] - Diet: Heart Healthy Diet Comment: mincruz, moist Sinan Attending Provider Instructions: discharge to [facility] for physical therapy for stroke patient has allergies to MAGGI inhibitors or ARBs and NSAIDs and avoid these types of medications in future blood pressure medication control scheduled appointments 07/08/2019 1:00 PM Provider Surya He MD Department General Internal Medicine [facility] 07/19/2019 9:00 AM Provider Surya He MD Department General Internal Medicine [facility] an appointment needs to be made for [facility] neurology clinic for 4 to 6 weeks after discharge from physical rehabilitation [facility] neurology clinic is located at [facility] on [address] [place] [address], [place] [address]. 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 Some specific ways to lower your chance of stroke are: * If you are a smoker, now is the time to stop smoking cigarettes * If you are diabetic, improve the control of your blood sugars * Avoid excessive amounts of alcohol * Control high blood pressure * Lose weight if you are overweight * Be sure to lead an active lifestyle * Eat a healthy diet low in salt, cholesterol and fat You should know about other risk factors for stroke that you are unable to control. These include: * Age 55 years or older * Male gender * Certain racial groups: , or / * Family History of Stroke, Mini stroke or Heart Attack * Sickle Cell Disease Follow Up: It is important for you to keep your follow up appointments with your medical provider. Who to Call and When: Medical Emergencies: Call 911 immediately if you experience any of the following warning signs and symptoms of Stroke: * Sudden numbness or weakness of the face, arm or leg, especially on one side of the body * Sudden confusion, trouble speaking or understanding * Sudden trouble seeing in one or both eyes * Sudden trouble walking, dizziness, loss of balance or coordination * Sudden severe headache with no cause Do not delay calling 911 if you experience any warning signs or symptoms of a stroke. Delay in seeking medical attention may affect what treatments can be given to you. . Pending Studies at Discharge: No Stand-Alone Forms: My [facility] Skilled Items Patient informed of condition?: Yes DNR: Yes Discharge Level of Care: Acute rehab Communicable Disease: No Discharge Prognosis: Stable Lines: None Urinary Catheter: No Medications and DC Order Prescriptions: New atorvastatin 40 mg Tablet 40 mg PO QAM 30 Days Qty: 30 RF: 0 amlodipine 10 mg tablet 10 mg PO QAM 30 Days Qty: 30 RF: 0 sennosides [Senokot] 8.6 mg Tablet 8.6 mg PO QAM 30 Days Qty: 30 RF: 0 polyethylene glycol 3350 [Miralax] 17 gram Powder In Packet 17 g PO DAILY 30 Days Qty: 30 RF: 0 aspirin [Ecotrin Low Strength] 81 mg Tablet,Delayed Release (Dr/Ec) 81 mg PO QAM 30 Days Qty: 30 RF: 0 labetalol 100 mg Tablet 100 mg PO Q12H 30 Days Qty: 60 RF: 0 Continued multivitamin Tablet 1 tab PO QAM RF: 0 tizanidine 2 mg tablet 2 mg PO Q6 PRN (Reason: MUSCLE SPASMS) RF: 0 levetiracetam [Keppra] 500 mg tablet 1,000 mg PO BID RF: 0 tamsulosin 0.4 mg capsule 0.4 mg PO QAM RF: 0 cephalexin [Keflex] 500 mg capsule 500 mg PO BID RF: 0 docusate sodium 100 mg Capsule 100 mg PO BID RF: 0 ammonium lactate 12 % cream 1 applic TOPICAL DAILY PRN (Reason: FEET) RF: 0 finasteride [Proscar] 5 mg tablet 5 mg PO QAM RF: 0 I-Don 1,000 unit-200 mg-60 unit-2 mg Tablet 1 tab PO QAM RF: 0 Thera-Gesic 15-1 % Cream 1 applic TOPICAL QID PRN (Reason: Pain) RF: 0 Discontinued atorvastatin [Lipitor] 20 mg tablet 20 mg PO QAM RF: 0 amlodipine [Norvasc] 5 mg tablet 5 mg PO DAILY Qty: 30 RF: 0 Discharge Orders: Discharge Order (Routine); Ordered 07/04/19 Ordered By: Walter Quezada/Other Patient Handouts: Stroke Dc Admission Data Admit Date/Time: 06/29/19 13:57 Attending Provider: Walter Torres Admit Provider: Margie Proctor Primary Care Provider: Parag Duque,[facility], Feedback Other Providers: [facility] ; Margie Proctor ; Brianne Coelho
== END 2019-07-04 16:35 | DRG 65 ==
LOC: ED 09:34 → 2E 13:57 → SUATTDRO 13:57 → 2E 15:32 → 2N 07-02 12:52